=== PATIENT | male | born 1985 | race Caucasian/White ===

== ENCOUNTER 2016-10-07 16:29 | Emergency (ER) | payer SELFPAY ==
[2016-10-07] MEDS ORDERED: NORMAL SALINE 1000 ML 1,000 ML IV ONE (17:16)
[2016-10-07 17:29] LABS: ABSOLUTE BASOPHILS # (AUTO) 0.1 10^3/uL (0.0-0.2); ABSOLUTE EOSINOPHILS # (AUTO) 0.3 10^3/uL (0.0-0.6); ABSOLUTE LYMPHOCYTES (AUTO) 2.6 10^3/uL (0.5-4.7); ABSOLUTE NEUT (AUTO) 6.9 10^3/uL (1.7-8.2); BASOPHILS % (AUTO) 0.6 % (0-2); EOSINOPHILS % (AUTO) 2.4 % (0-6); HEMATOCRIT 45.5 % (37.9-51.0); HGB HCT DIFFERENCE 2.5; LYMPHOCYTES % (AUTO) 23.7 % (13-45); MEAN CORPUSCULAR HEMOGLOBIN 30.4 pg (27.0-33.4); MEAN CORPUSCULAR HGB CONC 35.1 g/dL (32.0-36.0); MEAN CORPUSCULAR VOLUME 87 fl (80-97); MONOCYTES % (AUTO) 9.2 % (3-13); RED BLOOD COUNT 5.25 10^6/uL (4.35-5.55); RED CELL DISTRIBUTION WIDTH 13.4 % (11.5-14.0); SEGMENTED NEUTROPHILS % (AUTO) 64.1 % (42-78); WHITE BLOOD COUNT 10.8 10^3/uL (4.0-10.5)
[2016-10-07] MEDS ORDERED: KETOROLAC TROMETHAMINE INJ/PF 30 MG/1 ML SDV IV ONE (17:31)
--- NOTE | 2016-10-07 17:38 | ER Document Report ---
ED Cardiac - General Chief Complaint: Palpitations Stated Complaint: FLU LIKE SYMPTOMS Information source: Patient TRAVEL OUTSIDE OF THE U.S. IN LAST 30 DAYS: No - HPI Patient complains to provider of: Chest pain, Palpitations Use of: Alcohol - Social, Amphetamines - Prescribed, Caffeine - Monster energy daily Quality of pain: Constant, Tightness Associated symptoms: Fatigue, Headache, Palpitations. denies: Abdominal pain, Anxiety, Back pain, Dizziness, Edema, Fever/chills, Heartburn, Hypotension, Jaw pain, Nausea/vomiting, Neck pain, Rash, Syncope, Weakness Notes: Patient arrives with complaints of palpitations and left-sided chest pressure for the last few days now. Patient has a history of SVT and V. tach and has had 2 ablations in the past. He also reports that he has had a heart catheter in the past. The patient is on Adderall for ADHD, he also reports that he takes Ativan when necessary for anxiety. States that he has not been taking his Adderall over the last few days and has not been drinking his monster energy drink for the last few days due to feeling palpitations. He denies any fevers. He denies any injury. He denies any nausea, vomiting, diarrhea. He denies any recent trips or surgeries, no leg pain or leg swelling, no history of DVT or PE, no history of CHF. - Related Data Allergies/Adverse Reactions: brompheniramine [From Tussi Pres-B] Allergy (Verified 10/07/16 16:42) dextromethorphan [From Tussi Pres-B] Allergy (Verified 10/07/16 16:42) guaifenesin [From Tussi Pres-B] Allergy (Verified 10/07/16 16:42) latex Allergy (Verified 10/07/16 16:42) phenylephrine [From Tussi Pres-B] Allergy (Verified 10/07/16 16:42) Past Medical History - Social History Smoking Status: Unknown if Ever Smoked Family History: Reviewed & Not Pertinent Patient has suicidal ideation: No Patient has homicidal ideation: No - Past Medical History Cardiac Medical History: Reports: Hx Hypertension Renal/ Medical History: Denies: Hx Peritoneal Dialysis Psychiatric Medical History: Reports: Hx Attention Deficit Hyperactivity Disorder, Hx Depression Past Surgical History: Reports: Hx Cardiac Catheterization, Hx Cardiac Surgery - ablasion Review of Systems - Review of Systems -: Yes All other systems reviewed and negative Physical Exam - Vital signs Vitals: Temp Pulse Resp BP Pulse Ox 98.3 F 83 20 159/94 H 100 10/07/16 16:37 10/07/16 16:37 10/07/16 16:37 10/07/16 16:37 10/07/16 16:37 - General General appearance: Appears well, Alert In distress: None - HEENT Head: Normocephalic, Atraumatic Eyes: Normal Conjunctiva: Normal Pupils: PERRL Ears: Normal Nasal: Normal Mouth/Lips: Normal Mucous membranes: Normal - Respiratory Respiratory status: No respiratory distress Breath sounds: Normal - Cardiovascular Rhythm: Regular Heart sounds: Normal auscultation Murmur: No Normal capillary refill: Yes - Abdominal Inspection: Normal Distension: No distension Bowel sounds: Normal Tenderness: Nontender Organomegaly: No organomegaly - Back Back: Normal, Nontender - Extremities General upper extremity: Normal inspection, Nontender, Normal color, Normal ROM , Normal temperature General lower extremity: Normal inspection, Nontender, Normal color, Normal ROM , Normal temperature, Normal weight bearing. No: Tender, Edema - Neurological Neuro grossly intact: Yes Cognition: Normal Orientation: AAOx4 Ovi Coma Scale Eye Opening: Spontaneous [place] Coma Scale Verbal: Oriented [place] Coma Scale Motor: Obeys Commands Ovi Coma Scale Total: 15 Speech: Normal Motor strength normal: LUE, RUE, LLE, RLE Sensory: Normal - Psychological Associated symptoms: Normal affect, Normal mood - Skin Skin Temperature: Warm Skin Moisture: Dry Skin Color: Normal Course - Re-evaluation Re-evalutation: 10/07/16 18:41 Patient's nontoxic appearing with stable vitals. He has a history of SVT and V. tach and has had 2 ablations in the past. He's been having palpitations for the last few days. His EKG is unremarkable. He is noted to have occasional PVCs on a child monitor. No other arrhythmias are identified. Blood work is all negative including electrolytes TSH and troponin. D-dimer is negative, the patient has no PE risk factors, and PE is very unlikely in this patient. This point the patient can be discharged home with instructions to follow up with his meter repairer at the next available appointment for possible Holter monitor. He is instructed to avoid any stimulants including his Adderall as well as energy drinks. He should follow up sooner if he develops worsening chest pain, difficulty breathing, syncope, or has any further concerns. The patient is noted to have elevated blood pressure during today's emergency department visit. The patient was informed of this finding. The patient was instructed that this may be related to pre-hypertension and requires further evaluation with a primary care provider. The patient has no hypertensive symptoms at this time. The patient's emergency department workup and current diagnosis were explained to the patient and or family. Follow-up instructions were provided. Medications if prescribed were discussed. Instructions for when to return to the emergency department including specific worrisome symptoms were discussed with the patient and/or family. - Vital Signs Vital signs: Temp Pulse Resp BP Pulse Ox 98.3 F 83 12 132/73 H 98 10/07/16 16:37 10/07/16 16:37 10/07/16 18:32 10/07/16 18:32 10/07/16 18:32 - Laboratory Result Diagrams: 10/07/16 17:20 10/07/16 17:20 Laboratory results interpreted by me: 10/07/16 10/07/16 17:20 17:20 WBC 10.8 H Glucose 163 H - EKG Interpretation by [facility] EKG shows normal: Sinus rhythm, Intervals, QRS Complexes Rate: Normal Additional EKG results interpreted by wv: 10/07/16 17:45 Inverted T-wave in lead 3 and aVF, no EKGs to compare this to. Discharge - Discharge Clinical Impression: Palpitations, PVCs (premature ventricular contractions) Condition: Stable Disposition: HOME, SELF-CARE Additional Instructions: Avoid stimulants including your Adderall as well as monster or other energy drinks. Follow-up with your meter repairer at the next available appointment. Follow up sooner or return for severe chest pain, significant difficulty breathing, passing out, or any further concerns. Your blood pressure was elevated during today's visit. Have this rechecked with your doctor.
[2016-10-07 17:51] LABS: ALANINE AMINOTRANSFERASE 67 U/L (21-72); ALBUMIN 4.4 g/dL (3.5-5.0); ALKALINE PHOSPHATASE 78 U/L (38-126); ANION GAP 13 (5-19); ASPARTATE AMINO TRANSFERASE 28 U/L (17-59); BILIRUBIN,DIRECT 0.2 mg/dL (0.0-0.4); BILIRUBIN,TOTAL 0.5 mg/dL (0.2-1.3); BLOOD UREA NITROGEN 15 mg/dL (7-20); CALCIUM 9.5 mg/dL (8.4-10.2); CARBON DIOXIDE 26 mmol/L (22-30); CHLORIDE 101 mmol/L (98-107); CREATINE KINASE 166 U/L (55-170); CREATININE RESULT 0.97 mg/dL (0.52-1.25); GLUCOSE 163 mg/dL (75-110); MAGNESIUM 1.7 mg/dL (1.6-2.3); POTASSIUM 4.3 mmol/L (3.6-5.0); SODIUM 139.7 mmol/L (137-145); TOTAL PROTEIN 7.2 g/dL (6.3-8.2)
[2016-10-07 19:13] VITALS: BP 118/71
--- NOTE | 2016-10-07 22:08 | EKG REPORT ---
SEVERITY:- ABNORMAL ECG - SINUS RHYTHM NONSPECIFIC T ABNORMALITIES, INFERIOR LEADS : Confirmed by: Yakelin Cabrera MD 07-Oct-2016 22:08:14
== END 2016-10-07 19:13 | disposition home or self-care (01) ==
LOC: ER 16:29
DX: R00.2 Palpitations (principal); I49.3 Ventricular premature depolarization; R07.9 Chest pain, unspecified; R51 Headache; R53.83 Other fatigue; I10 Essential (primary) hypertension; Z91.040 Latex allergy status
CPT/HCPCS: 93005; 99285; 96361; 96374; 36415; 82550; 83735; 84443; 85025; 80053; 84484; 85379; 71020; 93010; J1885; J7030

== ENCOUNTER 2016-11-23 08:52 | Emergency (ER) | payer SELFPAY ==
[2016-11-23 08:58] VITALS: BP 138/87
[2016-11-23] MEDS ORDERED: PENICILLIN V POTASSIUM 500 MG TABLET PO ONE (09:24)
[2016-11-23] MEDS ORDERED: IBUPROFEN 600 MG TABLET PO ONE (09:24)
--- NOTE | 2016-11-23 09:30 | ER Document Report ---
ED Oral Problem - General Chief Complaint: Toothache Stated Complaint: TOOTH PAIN Time Seen by Provider: 11/23/16 09:17 Mode of Arrival: Ambulatory Information source: Patient Notes: 12-year-old male presents to ED for left upper back tooth #18 pain since last night. It has most of the tooth chipped and broken more redness around the tooth TRAVEL OUTSIDE OF THE [place] IN LAST 30 DAYS: No - HPI Patient complains to provider of: Toothache Onset: Yesterday Onset: Gradual Quality of pain: Pressure, Sharp, Throbbing Severity: Moderate Associated symptoms: Toothache Worsened by: Cold Similar symptoms previously: Yes Recently seen / treated by doctor/dentist: No - Related Data Allergies/Adverse Reactions: brompheniramine [From Tussi Pres-B] Allergy (Verified 11/23/16 08:53) dextromethorphan [From Tussi Pres-B] Allergy (Verified 11/23/16 08:53) guaifenesin [From Tussi Pres-B] Allergy (Verified 11/23/16 08:53) latex Allergy (Verified 11/23/16 08:53) phenylephrine [From Tussi Pres-B] Allergy (Verified 11/23/16 08:53) Past Medical History - General Information source: Patient - Social History Smoking Status: Current Every Day Smoker Cigarette use (# per day): Yes - Half a pack a day Chew tobacco use (# tins/day): No Smoking Education Provided: Yes - Less than 2 minutes Frequency of alcohol use: None Drug Abuse: None 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 Lives with: Spouse/Significant other Family History: Hypertension, Malignancy Patient has suicidal ideation: No Patient has homicidal ideation: No - Past Medical History Cardiac Medical History: Reports: Hx Hypertension, Other - SVT Pulmonary Medical History: Reports: None EENT Medical History: Reports: None Neurological Medical History: Reports: None Endocrine Medical History: Reports: None Renal/ Medical History: Reports: None Malignancy Medical History: Reports None GI Medical History: Reports: None Musculoskeltal Medical History: Reports Hx Musculoskeletal Trauma Skin Medical History: Reports None Psychiatric Medical History: Reports: Hx Attention Deficit Hyperactivity Disorder, Hx Depression Traumatic Medical History: Reports: Hx Fractures - Ankle Infectious Medical History: Reports: None Past Surgical History: Reports: Hx Cardiac Catheterization, Hx Cardiac Surgery - ablasion - Immunizations Immunizations up to date: Yes Hx Diphtheria, Pertussis, Tetanus Vaccination: Yes Review of Systems - Review of Systems Constitutional: No symptoms reported EENT: Dental problem Cardiovascular: No symptoms reported Respiratory: No symptoms reported Gastrointestinal: No symptoms reported Genitourinary: No symptoms reported Male Genitourinary: No symptoms reported Musculoskeletal: No symptoms reported Skin: No symptoms reported Hematologic/Lymphatic: No symptoms reported Neurological/Psychological: No symptoms reported Physical Exam - Vital signs Vitals: Temp Pulse Resp BP Pulse Ox 97.4 F 96 20 138/87 H 98 11/23/16 08:57 11/23/16 08:57 11/23/16 08:57 11/23/16 08:57 11/23/16 08:57 Interpretation: Normal - General General appearance: Appears well, Alert - HEENT Head: Normocephalic, Atraumatic Eyes: Normal Pupils: PERRL Ears: Normal External canal: Normal Tympanic membrane: Normal Sinus: Normal Nasal: Normal Mouth/Lips: Caries Mucous membranes: Normal Teeth diagram: 1 - Part of the tooth broken off and missing gum swelling around the tooth Pharynx: Normal Neck: Normal - Respiratory Respiratory status: No respiratory distress Chest status: Nontender Breath sounds: Normal Chest palpation: Normal - Cardiovascular Rhythm: Regular Heart sounds: Normal auscultation Murmur: No - Abdominal Inspection: Normal Distension: No distension Bowel sounds: Normal Tenderness: Nontender Organomegaly: No organomegaly - Back Back: Normal, Nontender - Extremities General upper extremity: Normal inspection, Nontender, Normal color, Normal ROM , Normal temperature General lower extremity: Normal inspection, Nontender, Normal color, Normal ROM , Normal temperature, Normal weight bearing. No: Rox's sign - Neurological Neuro grossly intact: Yes Cognition: Normal Orientation: AAOx4 [place] Coma Scale Eye Opening: Spontaneous [place] Coma Scale Verbal: Oriented [place] Coma Scale Motor: Obeys Commands Ovi Coma Scale Total: 15 Speech: Normal Motor strength normal: LUE, RUE, LLE, RLE Sensory: Normal - Psychological Associated symptoms: Normal affect, Normal mood - Skin Skin Temperature: Warm Skin Moisture: Dry Skin Color: Normal Course - Vital Signs Vital signs: Temp Pulse Resp BP Pulse Ox 97.4 F 96 20 138/87 H 98 11/23/16 08:57 11/23/16 08:57 11/23/16 08:57 11/23/16 08:57 11/23/16 08:57 Discharge - Discharge Clinical Impression: Pain due to dental caries Condition: Stable Disposition: HOME, SELF-CARE Instructions: Dentist Additional Instructions: TOOTHACHE: Your pain is due to dental decay. The tooth must be repaired in order for you to feel better. You will, therefore, be referred to a dentist. We do not have dentists on the staff at [facility]. Severe swelling or drainage around a tooth usually means a dental abscess. This also requires evaluation and treatment by the dentist, but antibiotics may be prescribed while awaiting dental treatment. You should be rechecked immediately if you develop major swelling of the face, increasing pain, a lump in the jaw or gums, headache, difficulty swallowing, or fever. ORAL NARCOTIC MEDICATION: You have been given a prescription for pain control. This medication is a narcotic. It's best taken with food, as nausea can result if taken on an empty stomach. Don't operate machinery or drive within six hours of taking this medication. Do not combine this medicine with alcohol, or with any medication which can cause sedation (such as cold tablets or sleeping pills) unless you get permission from the physician. Narcotics tend to cause constipation. If possible, drink plenty of fluids and eat a diet high in fiber and fruits. Please be aware that prescription narcotics also have the potential for abuse. People become addicted to these medications because of the general sense of wellbeing that they induce. This feeling along with a significant reduction in tension, anxiety, and aggression provides a stimulating seductive quality to these drugs. Once your pain is under control, we encourage you to discard your unused narcotics. PENICILLIN V K: You have been given a prescription for Penicillin VK. Your physician has determined that this is the best antibiotic for your condition. Pen VK can be taken with meals, however more of the antibiotic gets into the bloodstream if it's taken on an empty stomach. Penicillin usually has no side effects. However, allergy to penicillins is common. If you have had an allergic reaction to any drug of the penicillin family, you should never take any other penicillin. Notify your doctor at once if you develop hives, itching, swelling, faintness, or shortness of breath. FOLLOW-UP CARE: You have been referred for follow-up care to the dentists listed below. Call the dentists office for an appointment as you were instructed or within the next two days. If you experience worsening or a significant change in your symptoms, notify the physician immediately or return to the Emergency Department at any time for re-evaluation. [facility] [address] [place], [place] Wednesday mornings, by appointment [facility] [address] [place] [address] [facility] [address] [facility] [address] [facility] [facility] [address] [email or web address] [address] [place] [address] Wednesday- 8:00am to 5:00 pm Will see patients from other [facility]. Charges based on income and family size and accepts Medicare, Medicaid, and Insurances Will pull molars [facility] [address] Hours of Operation 8:00 am - 4:30 pm weekdays The following dental offices accept Medicaid: [facility] Dr. Pedroza Dr. Ignacio Dr. Perez Dr. Griffiths Amor [place] Luts[place], and [facility] oral surgery Dr. Ortiz ([place]) Dr. Corrales ([place]) [facility] Drs. Hudson and Kuldip ([place]) Dr. Mcguire ([place]) [facility] Dr. Cooley ([place]) Drs. De La Cruz and ([place]) Medicaid Care Line Prescriptions: Hydrocodone/Acetaminophen [[place] 5-325 mg Tablet] 1 tab PO Q6HP PRN #14 tablet PRN Reason: Penicillin V Potassium [Penicillin Vk 500 mg Tablet] 500 mg PO BID #20 tablet Forms: Smoking Cessation Education, Return to Work
== END 2016-11-23 09:40 | disposition home or self-care (01) ==
LOC: ER 08:52
DX: K02.9 Dental caries, unspecified (principal); K08.89 Other specified disorders of teeth and supporting structures; I10 Essential (primary) hypertension; Z88.8 Allergy status to other drugs, medicaments and biological substances; Z91.040 Latex allergy status; F17.210 Nicotine dependence, cigarettes, uncomplicated; Z71.6 Tobacco abuse counseling
CPT/HCPCS: 99282

== ENCOUNTER 2017-01-13 11:05 | Inpatient (IN) | payer SELFPAY ==
--- NOTE | 2017-01-13 12:07 | ER Document Report ---
ED GI/ - General Chief Complaint: Abdominal Pain Stated Complaint: ABDOMINAL PAIN Time Seen by Provider: 01/13/17 12:07 Mode of Arrival: Ambulatory Information source: Patient Notes: Patient is a 31-year-old male who presents to the ER today for vomiting bright red blood with blood clots 3 days. Patient has a history of a perforated gastric ulcer 2 years ago that started the same way. Patient has epigastric abdominal pain along with this for the past 3 days. He denies any diarrhea or blood in his stool. He denies any fevers or chills. TRAVEL OUTSIDE OF THE [place] IN LAST 30 DAYS: No - Related Data Allergies/Adverse Reactions: brompheniramine [From Tussi Pres-B] Allergy (Verified 01/13/17 11:14) dextromethorphan [From Tussi Pres-B] Allergy (Verified 01/13/17 11:14) guaifenesin [From Tussi Pres-B] Allergy (Verified 01/13/17 11:14) latex Allergy (Verified 01/13/17 11:14) phenylephrine [From Tussi Pres-B] Allergy (Verified 01/13/17 11:14) Past Medical History - General Information source: Patient - Social History Smoking Status: Unknown if Ever Smoked Family History: Hypertension, Malignancy - Past Medical History Cardiac Medical History: Reports: Hx Hypertension Renal/ Medical History: Denies: Hx Peritoneal Dialysis Musculoskeltal Medical History: Reports Hx Musculoskeletal Trauma Psychiatric Medical History: Reports: Hx Attention Deficit Hyperactivity Disorder, Hx Depression Traumatic Medical History: Reports: Hx Fractures - Ankle Past Surgical History: Reports: Hx Cardiac Catheterization, Hx Cardiac Surgery - ablasion - Immunizations Immunizations up to date: Yes Hx Diphtheria, Pertussis, Tetanus Vaccination: Yes Review of Systems - Review of Systems Constitutional: No symptoms reported EENT: No symptoms reported Cardiovascular: No symptoms reported Respiratory: No symptoms reported Gastrointestinal: See HPI Genitourinary: No symptoms reported Male Genitourinary: No symptoms reported Musculoskeletal: No symptoms reported Skin: No symptoms reported Hematologic/Lymphatic: No symptoms reported Neurological/Psychological: No symptoms reported Physical Exam - Vital signs Vitals: Temp Pulse Resp BP Pulse Ox 98.2 F 74 20 140/76 H 99 01/13/17 11:14 01/13/17 11:14 01/13/17 11:14 01/13/17 11:14 01/13/17 11:14 - Notes Notes: PHYSICAL EXAMINATION: GENERAL: uncomfortable, but in no acute distress. HEAD: Atraumatic, normocephalic. EYES: Pupils equal round and reactive to light, extraocular movements intact, sclera anicteric, conjunctiva are normal. ENT: ear canals without erythema or foreign body, TMs p[place] christie with good bony landmarks, nares patent, oropharynx clear without exudates. Moist mucous membranes. NECK: Normal range of motion, supple without lymphadenopathy LUNGS: CTAB and equal. No wheezes rales or rhonchi. HEART: Regular rate and rhythm without murmurs ABDOMEN: Soft, moderate epigastric tenderness. No guarding, no rebound BACK: no vertebral tenderness, normal ROM EXTREMITIES: Normal range of motion, no pitting edema. No cyanosis. NEUROLOGICAL: Cranial nerves grossly intact. Normal sensory/motor exams. PSYCH: Normal mood, normal affect. SKIN: Warm, Dry, normal turgor, no rashes or lesions noted Course - Re-evaluation Re-evalutation: 01/13/17 15:59 pt's vitals are all stable, not tachycardic, hgb is 16. Dr. Mortensen agrees pt needs admission for scope. Dr. Talbert, hospitalist agrees to admit patient at this time. Pt on clear liquid diet for tonight. - Vital Signs Vital signs: Temp Pulse Resp BP Pulse Ox 98.2 F 74 20 140/76 H 99 01/13/17 11:14 01/13/17 11:14 01/13/17 11:14 01/13/17 11:14 01/13/17 11:14 - Laboratory Result Diagrams: 01/13/17 12:13 01/13/17 12:13 Discharge - Discharge Clinical Impression: Upper GI bleed, Epigastric pain Condition: Stable Disposition: ADMITTED INPATIENT Admitting Provider: Hospitalist Unit Admitted: Telemetry Referrals: MARITZA WEATHERS PA-C [Primary Care Provider] - Follow up as needed
[2017-01-13] MEDS ORDERED: NORMAL SALINE 1000 ML 1,000 ML IV ONE (12:09)
[2017-01-13] MEDS ORDERED: PANTOPRAZOLE SODIUM 40 MG VIAL IV ONE (12:09)
[2017-01-13] MEDS ORDERED: METOCLOPRAMIDE HCL ORAL SOLN 10 MG/10 ML UDCUP PO ONE (12:16)
[2017-01-13] MEDS ORDERED: MAG HYDROX/AL HYDROX/SIMETH SUSP 30 ML UDCUP PO ONE (12:16)
[2017-01-13] MEDS ORDERED: LIDOCAINE 2% VISCOUS SOLN 20 ML UDCUP PO ONE (12:16)
[2017-01-13] MEDS ORDERED: ONDANSETRON HCL INJ/PF 4 MG/2 ML SDV IV ONE ×2 (12:16→16:03)
[2017-01-13 12:31] LABS: ABSOLUTE EOSINOPHILS # (AUTO) 0.2 10^3/uL (0.0-0.6); ABSOLUTE LYMPHOCYTES (AUTO) 2.2 10^3/uL (0.5-4.7); ABSOLUTE MONOCYTES (AUTO) 0.8 10^3/uL (0.1-1.4); ABSOLUTE NEUT (AUTO) 4.2 10^3/uL (1.7-8.2); BASOPHILS % (AUTO) 0.6 % (0-2); EOSINOPHILS % (AUTO) 2.4 % (0-6); HEMATOCRIT 47.2 % (37.9-51.0); HEMOGLOBIN 16.2 g/dL (13.5-17.0); HGB HCT DIFFERENCE 1.4; LYMPHOCYTES % (AUTO) 29.5 % (13-45); MEAN CORPUSCULAR HEMOGLOBIN 29.8 pg (27.0-33.4); MEAN CORPUSCULAR HGB CONC 34.3 g/dL (32.0-36.0); MEAN CORPUSCULAR VOLUME 87 fl (80-97); MONOCYTES % (AUTO) 10.9 % (3-13); RED BLOOD COUNT 5.43 10^6/uL (4.35-5.55); RED CELL DISTRIBUTION WIDTH 13.5 % (11.5-14.0); SEGMENTED NEUTROPHILS % (AUTO) 56.6 % (42-78); WHITE BLOOD COUNT 7.5 10^3/uL (4.0-10.5)
[2017-01-13 12:34] LABS: PROTHROMBIN TIME 13.8 SEC (11.4-15.4)
[2017-01-13 12:35] LABS: PARTIAL THROMBOPLASTIN TIME 30.6 SEC (23.5-35.8)
[2017-01-13 12:50] LABS: ALANINE AMINOTRANSFERASE 59 U/L (21-72); ALBUMIN 4.8 g/dL (3.5-5.0); ALKALINE PHOSPHATASE 66 U/L (38-126); ANION GAP 12 (5-19); ASPARTATE AMINO TRANSFERASE 30 U/L (17-59); BILIRUBIN,DIRECT 0.3 mg/dL (0.0-0.4); BILIRUBIN,TOTAL 0.8 mg/dL (0.2-1.3); BLOOD UREA NITROGEN 14 mg/dL (7-20); CALCIUM 9.9 mg/dL (8.4-10.2); CARBON DIOXIDE 23 mmol/L (22-30); CHLORIDE 104 mmol/L (98-107); CREATININE RESULT 1.01 mg/dL (0.52-1.25); GLUCOSE 103 mg/dL (75-110); POTASSIUM 4.6 mmol/L (3.6-5.0); SODIUM 138.6 mmol/L (137-145); TOTAL PROTEIN 7.8 g/dL (6.3-8.2)
[2017-01-13] MEDS ORDERED: MORPHINE SULFATE 10 MG/ML INJ IV ONE ×4 (13:13→18:47)
--- NOTE | 2017-01-13 16:00 | RADIOLOGY REPORT (SQ) ---
EXAM DESCRIPTION: ACUTE ABDOMEN SERIES COMPLETED DATE/TIME: 01/13/2017 2:30 pm REASON FOR STUDY: gastric ulcer COMPARISON: None. NUMBER OF VIEWS: Three views. TECHNIQUE: Frontal chest, supine abdomen and upright/decubitus abdomen radiographic images acquired. LIMITATIONS: None. FINDINGS: CHEST: Lungs clear of infiltrates. FREE AIR: None. No abnormal gas collections. BOWEL GAS PATTERN: Nonobstructive pattern. No dilated loops or air fluid levels. CALCIFICATIONS: No suspicious calcifications. HARDWARE: None in the abdomen. SOFT TISSUES: No gross mass or suggestion of organomegaly. BONES: No acute fracture. No worrisome bone lesions. OTHER: No other significant finding. IMPRESSION: NO RADIOGRAPHIC EVIDENCE FOR ACUTE ABDOMINAL DISEASE. TECHNICAL DOCUMENTATION: JOB ID: [id number] [employer]- All Rights Reserved
[2017-01-13] MEDS ORDERED: ACETAMINOPHEN 325 MG TABLET PO PRN (16:21)
[2017-01-13] MEDS ORDERED: NORMAL SALINE 1000 ML 1,000 ML IV PRN (16:21)
[2017-01-13] MEDS ORDERED: ONDANSETRON HCL INJ/PF 4 MG/2 ML SDV IV PRN (16:26)
[2017-01-13] MEDS ORDERED: MORPHINE SULFATE 10 MG/ML INJ IV PRN (16:29)
[2017-01-13 16:37] LABS: APPEARANCE,URINE CLEAR; BILIRUBIN,URINE NEGATIVE (NEGATIVE); GLUCOSE, URINE NEGATIVE (NEGATIVE); KETONES,URINE NEGATIVE (NEGATIVE); LEUKOCYTE ESTERASE,URINE NEGATIVE (NEGATIVE); NITRITE,URINE NEGATIVE (NEGATIVE); PROTEIN,URINE NEGATIVE (NEGATIVE); URINE SPECIFIC GRAVITY 1.016; UROBILINOGEN,URINE NEGATIVE mg/dL (<2.0)
--- NOTE | 2017-01-13 16:56 | PDOC H&P ---
History of Present Illness Admission Date/PCP: 01/13/17 16:21 MARITZA WEATHERS PA-C Patient complains of: vomiting blood History of Present Illness: SAMEER SALGADO is a 31 year old male presents to the ED from home with 3d hx of vomiting blood and prior hx of PUD and UGIB requiring endoscopy and cautery without etiology identified. This started suddenly after working out at the gym with vomiting of blood and epigastric pain which continued until he couldn' t take the pain anymore. He denies NSAID, steroid (anabolic or otherwise) use, ETOH and has no recollection of H. Pylori in the past. He doesn't routinely take acid suppressors but admits a love for hot, spicy food in spite of his hx. He denies family hx of GI disease, gastrin tumors, PUD, malignancy, etc. he denies weight loss, night sweats, swollen glands. eval in ED demonstrated active hematemesis, he remains hemodynamically stable and AXR shows no evidence for free air or perforation. we were asked to admit for further management. dr story, GI consulted from the ED. Past Medical History Cardiac Medical History: Reports: Hypertension Endocrine Medical History: Denies: Diabetes Mellitus Type 1 GI Medical History: Reports: Peptic Ulcer Disease Psychiatric Medical History: Reports: Attention Deficit Hyperactivity Disorder, Depression Past Surgical History Past Surgical History: Reports: Cardiac Catheterization, Cholecystectomy, Other - cardiac ablation for WPW Social History Information Source: Patient Lives with: Spouse/Significant other Smoking Status: Never Smoker Frequency of Alcohol Use: None Hx Recreational Drug Use: No Hx Prescription Drug Abuse: No - Advance Directive Resuscitation Status: Full Code Family History Family History: Hypertension, Malignancy - no GI malignancy Parental Family History Reviewed: Yes Children Family History Reviewed: Yes Sibling(s) Family History Reviewed.: Yes Medication/Allergy Home Medications: Hydrocodone/Acetaminophen [Collyer 5-325 mg Tablet] 1 tab PO Q6HP PRN #14 tablet 11/23/16 Penicillin V Potassium [Penicillin Vk 250 mg Tablet] 250 mg PO Q6 #40 tablet Allergies/Adverse Reactions: brompheniramine [From Tussi Pres-B] Allergy (Verified 01/13/17 11:14) dextromethorphan [From Tussi Pres-B] Allergy (Verified 01/13/17 11:14) guaifenesin [From Tussi Pres-B] Allergy (Verified 01/13/17 11:14) latex Allergy (Verified 01/13/17 11:14) phenylephrine [From ssi Pres-B] Allergy (Verified 01/13/17 11:14) Review of Systems All systems: reviewed and no additional remarkable complaints except as stated - all systems reviewed, see HPI, remaining systems negative Physical Exam Vital Signs: Temp Pulse Resp BP Pulse Ox 98.2 F 74 20 134/72 H 97 01/13/17 11:14 01/13/17 11:14 01/13/17 11:14 01/13/17 15:02 01/13/17 15:02 General appearance: PRESENT: mild distress - epigastric pain, well-developed, well-nourished Head exam: PRESENT: atraumatic, normocephalic Eye exam: PRESENT: EOMI. ABSENT: conjunctival injection, scleral icterus Mouth exam: PRESENT: moist, neck supple Neck exam: PRESENT: full ROM. ABSENT: tracheal deviation Respiratory exam: PRESENT: clear to auscultation sofia. ABSENT: accessory muscle use Cardiovascular exam: PRESENT: RRR. ABSENT: systolic murmur Pulses: PRESENT: normal radial pulses, normal dorsalis pedis pul GI/Abdominal exam: PRESENT: normal bowel sounds, soft, tenderness - pain epigastrium. ABSENT: guarding, organolmegaly Extremities exam: ABSENT: calf tenderness, pedal edema Musculoskeletal exam: PRESENT: ambulatory, full ROM Neurological exam: PRESENT: alert, awake, oriented to person, oriented to place , oriented to time, oriented to situation Psychiatric exam: PRESENT: appropriate affect, normal mood Skin exam: PRESENT: dry, warm Results Laboratory Results: 01/13/17 12:13 01/13/17 12:13 MCV 87 fl (80-97) 01/13/17 12:13 MCH 29.8 pg (27.0-33.4) 01/13/17 12:13 MCHC 34.3 g/dL (32.0-36.0) 01/13/17 12:13 RDW 13.5 % (11.5-14.0) 01/13/17 12:13 Seg Neutrophils % 56.6 % (42-78) 01/13/17 12:13 Lymphocytes % 29.5 % (13-45) 01/13/17 12:13 Monocytes % 10.9 % (3-13) 01/13/17 12:13 Eosinophils % 2.4 % (0-6) 01/13/17 12:13 Basophils % 0.6 % (0-2) 01/13/17 12:13 Absolute Neutrophils 4.2 10^3/uL (1.7-8.2) 01/13/17 12:13 Absolute Lymphocytes 2.2 10^3/uL (0.5-4.7) 01/13/17 12:13 Absolute Monocytes 0.8 10^3/uL (0.1-1.4) 01/13/17 12:13 Absolute Eosinophils 0.2 10^3/uL (0.0-0.6) 01/13/17 12:13 Absolute Basophils 0.0 10^3/uL (0.0-0.2) 01/13/17 12:13 Chloride 104 mmol/L (98-107) 01/13/17 12:13 Carbon Dioxide 23 mmol/L (22-30) 01/13/17 12:13 Anion Gap 12 (5-19) 01/13/17 12:13 Est GFR ( Amer) > 60 (>60) 01/13/17 12:13 Est GFR (Non-Af Amer) > 60 (>60) 01/13/17 12:13 Glucose 103 mg/dL (75-110) 01/13/17 12:13 Calcium 9.9 mg/dL (8.4-10.2) 01/13/17 12:13 Total Bilirubin 0.8 mg/dL (0.2-1.3) 01/13/17 12:13 AST 30 U/L (17-59) 01/13/17 12:13 ALT 59 U/L (21-72) 01/13/17 12:13 Alkaline Phosphatase 66 U/L (38-126) 01/13/17 12:13 Total Protein 7.8 g/dL (6.3-8.2) 01/13/17 12:13 Albumin 4.8 g/dL (3.5-5.0) 01/13/17 12:13 Lipase 94.4 U/L (23-300) 01/13/17 12:13 Urine Color YELLOW 01/13/17 15:17 Urine Appearance CLEAR 01/13/17 15:17 Urine pH 6.0 (5.0-9.0) 01/13/17 15:17 Ur Specific Left Hand 1.016 01/13/17 15:17 Urine Protein NEGATIVE mg/dL (NEGATIVE) 01/13/17 15:17 Urine Glucose (UA) NEGATIVE mg/dL (NEGATIVE) 01/13/17 15:17 Urine Ketones NEGATIVE mg/dL (NEGATIVE) 01/13/17 15:17 Urine Blood NEGATIVE (NEGATIVE) 01/13/17 15:17 Urine Nitrite NEGATIVE (NEGATIVE) 01/13/17 15:17 Ur Leukocyte Esterase NEGATIVE (NEGATIVE) 01/13/17 15:17 Urine WBC (Auto) 1 /HPF 01/13/17 15:17 Urine RBC (Auto) 0 /HPF 01/13/17 15:17 Impressions: Acute Abdomen Series 01/13/17 13:30 IMPRESSION: NO RADIOGRAPHIC EVIDENCE FOR ACUTE ABDOMINAL DISEASE. Status: Image reviewed by me - agree with rads Assessment & Plan - Diagnosis (1) Upper GI bleed Is this a current diagnosis for this admission?: YesPlan: new; admit to monitored bed for PPI bid, clear liquid diet, trend H/H and GI consult intending to take to endo suite in am (2) PUD (peptic ulcer disease) Is this a current diagnosis for this admission?: YesPlan: PPI bid and await gastric Bxs from endoscopy (3) History of Fwpqh-Ggliwykmk-Aimni (WPW) syndrome Is this a current diagnosis for this admission?: YesPlan: s/p ablation - Time Time Spent: 50 to 70 Minutes Medications reviewed and adjusted accordingly: Yes Anticipated discharge: Home Within: within 48 hours - Inpatient Certification Based on my medical assessment, after consideration of the patient's comorbidities, presenting symptoms, or acuity I expect that the services needed warrant INPATIENT care.: Yes I certify that my determination is in accordance with my understanding of Medicare's requirements for reasonable and necessary INPATIENT services [42 CFR 412.3e].: Yes Medical Necessity: Need For IV Fluids, Need For Continuous Telemetry Monitoring , Need for Pain Control
--- NOTE | 2017-01-13 17:52 | PDOC CONSULTATION ---
Consultation Consult Date: 01/13/17 Attending physician:: AZEEM RICHARDS Consult reason:: abdominal pain, hematemesis. history of PUD, perforated in the past History of Present Illness Admission Date/PCP: 01/13/17 16:21 MARITZA WEATHERS PA-C History of Present Illness: I was asked to see this patient from the ED he is being admitted by the Hospitalist service patient has a previous history of a perforated peptic ulcer s/p cholecystectomy patient does also have a history of WPW that has been ablated presents with abdominal pain with nausea and vomiting patient has had some hematemesis Hgb is stable patient does admit to some melena as well, but that has resolved patient is actually hungry and want to eat appears hemodynamically stable has a history of previous perforated ulcer , abdominal series here is negative patient states does have some early satiety as well denies any NSAID use Past Medical History Cardiac Medical History: Reports: Hypertension Endocrine Medical History: Denies: Diabetes Mellitus Type 1 GI Medical History: Reports: Peptic Ulcer Disease Psychiatric Medical History: Reports: Attention Deficit Hyperactivity Disorder, Depression Past Surgical History Past Surgical History: Reports: Cardiac Catheterization, Cholecystectomy, Other - cardiac ablation for WPW Social History Lives with: Spouse/Significant other Smoking Status: Never Smoker Frequency of Alcohol Use: None Hx Recreational Drug Use: No Hx Prescription Drug Abuse: No - Advance Directive Resuscitation Status: Full Code Family History Family History: Hypertension, Malignancy - no GI malignancy Parental Family History Reviewed: Yes Children Family History Reviewed: Unknown Sibling(s) Family History Reviewed.: Unknown Medication/Allergy Allergies/Adverse Reactions: brompheniramine [From Tussi Pres-B] Allergy (Verified 01/13/17 11:14) dextromethorphan [From Tussi Pres-B] Allergy (Verified 01/13/17 11:14) guaifenesin [From Tussi Pres-B] Allergy (Verified 01/13/17 11:14) latex Allergy (Verified 01/13/17 11:14) phenylephrine [From Tussi Pres-B] Allergy (Verified 01/13/17 11:14) Review of Systems Constitutional: ABSENT: fever(s), headache(s), night sweats, weakness Eyes: ABSENT: visual disturbances Ears: ABSENT: hearing changes Nose, Mouth, and Throat: ABSENT: mouth pain, sore throat Cardiovascular: ABSENT: orthropnea, palpitations Respiratory: ABSENT: dyspnea, hemoptysis Gastrointestinal: PRESENT: hematemesis, melena. ABSENT: diarrhea, dysphagia Genitourinary: ABSENT: dysuria, hematuria Musculoskeletal: ABSENT: deformity, joint swelling Integumentary: ABSENT: pruritus Neurological: ABSENT: syncope, tingling, tremor(s), vertigo Endocrine: ABSENT: polydipsia, polyphagia, polyuria Hematologic/Lymphatic: ABSENT: easy bruising Physical Exam Vital Signs: Temp Pulse Resp BP Pulse Ox 98.2 F 74 18 130/90 H 96 01/13/17 11:14 01/13/17 11:14 01/13/17 17:01 01/13/17 17:00 01/13/17 17:01 General appearance: PRESENT: no acute distress, well-developed, well-nourished Head exam: PRESENT: atraumatic, normocephalic Eye exam: PRESENT: EOMI, PERRLA. ABSENT: nystagmus, periorbital swelling, scleral icterus Mouth exam: PRESENT: moist, neck supple Throat exam: ABSENT: tonsillar exudate, tonsillogmegaly Neck exam: ABSENT: meningismus, tenderness, thyromegaly Respiratory exam: PRESENT: symmetrical, unlabored. ABSENT: rales, tachypnea, wheezes Cardiovascular exam: PRESENT: RRR, +S1, +S2 Pulses: PRESENT: normal carotid pulses Extremities exam: ABSENT: joint swelling Musculoskeletal exam: PRESENT: full ROM Neurological exam: PRESENT: oriented to time, oriented to situation, reflexes normal, CN II-XII grossly intact Skin exam: PRESENT: normal color. ABSENT: mottled, pallor, petechiae, urticaria , vesicles Results Impressions: Acute Abdomen Series 01/13/17 13:30 IMPRESSION: NO RADIOGRAPHIC EVIDENCE FOR ACUTE ABDOMINAL DISEASE. Assessment & Plan - Diagnosis (1) Epigastric pain Plan: likely has peptic ulcer disease no perforation noted admit PPI drip ? can start on clear will need to be NPO overnight he will need EGD would benefit from Propofol sedation Risks, benefits and alternatives are explained to the patient in detail further recommendations to follow (2) Upper GI bleed Is this a current diagnosis for this admission?: YesPlan: could be due to ulcer vs possible Alaina ruiz tear EGD should hopefully provide further clarification patient is willing to proceed - Time Time Spent: 50 to 70 Minutes
[2017-01-13] MEDS: MORPHINE SULFATE 10 MG/ML INJ IV PRN (22:50)
[2017-01-13] MEDS: PANTOPRAZOLE SODIUM 40 MG VIAL IV SCH (22:50)
[2017-01-13 23:46] LABS: HEMATOCRIT 40.7 % (37.9-51.0); MEAN CORPUSCULAR HEMOGLOBIN 30.1 pg (27.0-33.4); MEAN CORPUSCULAR HGB CONC 34.2 g/dL (32.0-36.0); MEAN CORPUSCULAR VOLUME 88 fl (80-97); RED BLOOD COUNT 4.63 10^6/uL (4.35-5.55); RED CELL DISTRIBUTION WIDTH 13.3 % (11.5-14.0); WHITE BLOOD COUNT 7.8 10^3/uL (4.0-10.5)
[2017-01-13 23:50] LABS: HEMOGLOBIN 13.9 g/dL (13.5-17.0)
[2017-01-14] MEDS: MORPHINE SULFATE 10 MG/ML INJ IV PRN ×2 (03:12→07:31)
[2017-01-14 05:44] LABS: HEMATOCRIT 39.6 % (37.9-51.0); HEMOGLOBIN 13.6 g/dL (13.5-17.0); HGB HCT DIFFERENCE 1.2; MEAN CORPUSCULAR HEMOGLOBIN 29.7 pg (27.0-33.4); MEAN CORPUSCULAR HGB CONC 34.4 g/dL (32.0-36.0); MEAN CORPUSCULAR VOLUME 87 fl (80-97); RED BLOOD COUNT 4.58 10^6/uL (4.35-5.55); RED CELL DISTRIBUTION WIDTH 13.2 % (11.5-14.0); WHITE BLOOD COUNT 6.9 10^3/uL (4.0-10.5)
[2017-01-14] MEDS: PANTOPRAZOLE SODIUM 40 MG VIAL IV SCH (09:16)
[2017-01-14] MEDS ORDERED: PROPOFOL INJ 200 MG/20 ML VIAL IV ONE (10:49)
[2017-01-14] MEDS ORDERED: MIDAZOLAM 2 MG/2 ML INJ ONE (12:49)
[2017-01-14] MEDS ORDERED: MORPHINE SULFATE 10 MG/ML INJ IV PRN (14:13)
[2017-01-14] MEDS ORDERED: ONDANSETRON HCL INJ/PF 4 MG/2 ML SDV IV PRN (14:14)
--- NOTE | 2017-01-14 14:42 | Operative Report ---
Operative Report DATE OF SURGERY: 01/14/17 Operative Report: The risks benefits and alternatives of the procedure explained to the patient in detail and informed consent is obtained. A GIF Olympus video scope was inserted into the patient's mouth and hypopharynx, the esophagus is identified intubated and insufflated ,the scope was then advanced through the esophagus stomach and duodenum,retroflexion maneuver is done, the esophagus stomach and first and second portions of the duodenum examined PREOPERATIVE DIAGNOSIS: Hematemesis POSTOPERATIVE DIAGNOSIS: Mild gastritis,. Duodenitis. Previous old Alaina- Muro tear healing OPERATION: EGD with biopsy SURGEON: AZEEM RICHARDS ANESTHESIA: LMAC TISSUE REMOVED OR ALTERED: Gastric specimen obtained to rule out Helicobacter pylori COMPLICATIONS: None. ESTIMATED BLOOD LOSS: None. INTRAOPERATIVE FINDINGS: As described above. PROCEDURE: Patient tolerated the procedure well. No immediate postprocedure complications are noted. Patient discharged back to his room in good condition. Discharge diet: Regular. Discharge activity: Regular. Follow-up as outpatient, wait on biopsies
--- NOTE | 2017-01-14 15:23 | PDOC DISCHARGE SUMMARY ---
General - Admit/Disc Date/PCP Admission Date/Primary Care Provider: 01/13/17 16:21 MARITZA WEATHERS PA-C Discharge Date: 01/14/17 - Discharge Diagnosis (1) Alaina-Muro tear Is this a current diagnosis for this admission?: YesSummary: no heavy lifting or straining for at least 2 wks; take PPI bid for 2 wks and f/ u with dr story as instructed (2) Gastritis and duodenitis Is this a current diagnosis for this admission?: YesSummary: avoid hot/spicy foods, ETOH and NSAIDs other than Tylenol for next 2 wks; f/u with GI as instructed, return to hospital for worsening symptoms. (3) Upper GI bleed Is this a current diagnosis for this admission?: YesSummary: no active bleeding found on EGD and H/H actually trended up in spite of dilutional effect of IVFs indicating no further blood loss. (4) PUD (peptic ulcer disease) Is this a current diagnosis for this admission?: YesSummary: ruled out with EGD, no evidence for ulcerative disease (5) History of Idvri-Gvabbdbcw-Ind[place] (WPW) syndrome Is this a current diagnosis for this admission?: Yes - Additional Information Resuscitation Status: Full Code Discharge Diet: Regular Discharge Activity: Activity As Tolerated Home Medications: Alprazolam [Xanax] 1 mg PO TIDP PRN 01/13/17 Citalopram Hydrobromide [Celexa 20 mg Tablet] 20 mg PO DAILY 01/13/17 Hydrocodone/Acetaminophen [Victor 5-325 mg Tablet] 1 tab PO Q4HP PRN #14 tablet 01/14/17 Omeprazole Magnesium [Prilosec Otc] 40 mg PO BID 14 Days 01/14/17 Promethazine HCl [Phenergan 25 mg Tablet] 25 mg PO Q6HP PRN #10 tablet 01/14/17 History of Present Illness Patient complains of: vomiting blood History of Present Illness: SAMEER SALGADO is a 31 year old male presents to the ED from home with 3d hx of vomiting blood and prior hx of PUD and UGIB requiring endoscopy and cautery without etiology identified. Hospital Course Hospital Course: This started suddenly after working out at the gym with vomiting of blood and epigastric pain which continued until he couldn't take the pain anymore. He denies NSAID, steroid (anabolic or otherwise) use, ETOH and has no recollection of H. Pylori in the past. He doesn't routinely take acid suppressors but admits a love for hot, spicy food in spite of his hx. He denies family hx of GI disease, gastrin tumors, PUD, malignancy, etc. he denies weight loss, night sweats, swollen glands. eval in ED demonstrated active hematemesis, he remains hemodynamically stable and AXR shows no evidence for free air or perforation. we were asked to admit for further management. dr story, GI consulted from the ED. he was admitted and started on PPI tx with pain and nausea control, dr story consulted and took for EGD with findings of mild gastritis, duodenitis and healing Alaina-Muro tear likely accounting for his symptoms and GIB. no other obvious source of blood loss identified. his H/H acutally trended up in spite of the dilutional effect of IVFs indicating no ongoing blood loss. he remained hemodynamically stable and is ready for d/c home. he should f/u as noted above, work note provided, Rxs placed on chart. Physical Exam Vital Signs: Temp Pulse Resp BP Pulse Ox 98.4 F 64 11 L 118/61 96 01/14/17 14:08 01/14/17 14:08 01/14/17 14:08 01/14/17 14:08 01/14/17 14:08 Intake & Output 01/13/17 01/14/17 01/15/17 06:59 06:59 06:59 Intake Total 574 250 Output Total 300 0 Balance 274 250 Weight 133.6 kg 133.6 kg Results Laboratory Results: 01/14/17 05:30 01/13/17 01/14/17 23:26 05:30 WBC 7.8 6.9 RBC 4.63 4.58 Hgb 13.9 D 13.6 Hct 40.7 39.6 MCV 88 87 MCH 30.1 29.7 MCHC 34.2 34.4 RDW 13.3 13.2 Plt Count 227 222 Impressions: Acute Abdomen Series 01/13/17 13:30 IMPRESSION: NO RADIOGRAPHIC EVIDENCE FOR ACUTE ABDOMINAL DISEASE. Qualifiers PATEINT BEING DISCHARGED WITH ANY OF THE FOLLOWING DIAGNOSIS?: No VTE patient discharged on overlapping Therapy?: No Reason(s) for not prescribing Overlap Therapy:: Not indicated Plan Discharge Plan: home with PPI for next 2 wks, further restrictions noted above; f/u GI as instructed, f/u PCP in 1-2 wks or sooner for recurrent symptoms. return to the ED for worsening symptoms. Time Spent: Greater than 30 Minutes
[2017-01-14 16:06] VITALS: BP 130/62
== END 2017-01-14 17:06 | disposition home or self-care (01) | DRG 370 ==
LOC: ER 11:05 → EH 16:21 → 4S 19:04
PROVIDERS: ADMIT Internal Medicine; ATTEND Internal Medicine
PROC: 0DB68ZX Excision of Stomach, Via Natural or Artificial Opening Endoscopic, Diagnostic (ICD-10-PCS; principal; 2017-01-14 12:30)
DX: K22.6 Gastro-esophageal laceration-hemorrhage syndrome (principal); K92.2 Gastrointestinal hemorrhage, unspecified; K29.70 Gastritis, unspecified, without bleeding; K29.80 Duodenitis without bleeding; I10 Essential (primary) hypertension; F90.9 Attention-deficit hyperactivity disorder, unspecified type; F32.9 Major depressive disorder, single episode, unspecified; Z87.11 Personal history of peptic ulcer disease
CPT/HCPCS: 36415; 43239; 740; 74022; 80053; 81001; 83690; 85025; 85027; 85610; 85730; 88305; 88342; 99285; J2250; J2270; J2405; J2704; J3490; J7030; S0164

== ENCOUNTER 2017-01-23 19:48 | Observation (INO) | payer BC ==
[2017-01-23] MEDS ORDERED: ASPIRIN 81 MG TABLET, CHEWABLE PO ONE (20:19)
--- NOTE | 2017-01-23 20:26 | ER Document Report ---
ED Medical Screen (RME) - General Chief Complaint: Palpitations Stated Complaint: CHEST PAIN,PALPITATIONS Time Seen by Provider: 01/23/17 20:12 Mode of Arrival: Ambulatory Information source: Patient TRAVEL OUTSIDE OF THE [place] IN LAST 30 DAYS: No - HPI Onset: Just prior to arrival Onset/Duration: Sudden Context: SUDDEN UNPROVOKED ONSET WHILE ACCOMPANYING HIS MOTHER ON A SHOPPING TRIP. Quality of pain: Sharp Severity: Moderate Associated Symptoms: Chest pain, Dizzy/lightheaded, Nausea, Shortness of breath Exacerbated by: Denies Relieved by: Denies Similar symptoms previously: No Recently seen / treated by doctor: No - Related Data Smoking: Cigarettes, Less than 1 pack/day Frequency of alcohol use: Occasional Drug Abuse: None Allergies/Adverse Reactions: latex Allergy (Verified 01/13/17 11:14) Past Medical History - General Information source: Patient - Social History Cigarette use (# per day): Yes Chew tobacco use (# tins/day): No Frequency of alcohol use: Rare Drug Abuse: None Lives with: Spouse/Significant other Family history: None - Past Medical History Cardiac Medical History: Reports: Hx Hypertension, Other - PSVT, VT Pulmonary Medical History: Reports: None EENT Medical History: Reports: None Neurological Medical History: Reports: None Endocrine Medical History: Reports: None. Denies: Hx Diabetes Mellitus Type 1 Renal/ Medical History: Reports: None. Denies: Hx Peritoneal Dialysis Malignancy Medical History: Reports None GI Medical History: Reports: None Musculoskeltal Medical History: Reports Hx Musculoskeletal Trauma Psychiatric Medical History: Reports: Hx Attention Deficit Hyperactivity Disorder, Hx Depression Traumatic Medical History: Reports: Hx Fractures - Ankle Past Surgical History: Reports: Hx Cardiac Catheterization, Hx Cardiac Surgery - ablation x 2, Hx Cholecystectomy, Other - cardiac ablation for WPW - Immunizations Immunizations up to date: Yes Hx Diphtheria, Pertussis, Tetanus Vaccination: Yes Review of Systems - Review of Systems Constitutional: Diaphoresis, Weakness EENT: No symptoms reported Cardiovascular: See HPI Respiratory: See HPI Gastrointestinal: See HPI Genitourinary: No symptoms reported Musculoskeletal: No symptoms reported Skin: No symptoms reported Neurological/Psychological: See HPI Physical Exam - Vital signs Vitals: Temp Pulse Resp BP Pulse Ox 98.4 F 126 H 24 H 137/90 H 100 01/23/17 20:10 01/23/17 20:10 01/23/17 20:10 01/23/17 20:10 01/23/17 20:10 Interpretation: Hypertensive, Tachycardic, Tachypneic. No: Hypoxic - General General appearance: Alert, Anxious, Other - TREMULOUS In distress: None - HEENT Head: Normocephalic Eyes: Normal Conjunctiva: Normal Ears: Normal Nasal: Normal Mouth/Lips: Normal Mucous membranes: Normal - Respiratory Respiratory status: No respiratory distress - Cardiovascular Rhythm: Regular, Tachycardia - Abdominal Inspection: Normal, Obese - Back Back: Normal - Extremities General upper extremity: Normal inspection General lower extremity: Normal inspection. No: Edema - Neurological Neuro grossly intact: Yes Cognition: Normal Orientation: AAOx4 - Psychological Associated symptoms: Anxious - Skin Skin Temperature: Warm Skin Moisture: Dry Skin Color: Normal Skin Turgor: Elastic Course - Vital Signs Vital signs: Temp Pulse Resp BP Pulse Ox 98.4 F 126 H 24 H 137/90 H 100 01/23/17 20:10 01/23/17 20:10 01/23/17 20:10 01/23/17 20:10 01/23/17 20:10 - EKG Interpretation by [facility] EKG shows normal: Sinus rhythm, [place], Intervals, QRS Complexes. abnormal: ST-T Waves - BORDERLINE T ABNLS. Rate: Tachycardia When compared to previous EKG there are: Changes noted - DECREASED R WAVES INFERIORLY
[2017-01-23 20:41] LABS: ABSOLUTE BASOPHILS # (AUTO) 0.1 10^3/uL (0.0-0.2); ABSOLUTE EOSINOPHILS # (AUTO) 0.1 10^3/uL (0.0-0.6); ABSOLUTE LYMPHOCYTES (AUTO) 4.2 10^3/uL (0.5-4.7); ABSOLUTE MONOCYTES (AUTO) 1.2 10^3/uL (0.1-1.4); ABSOLUTE NEUT (AUTO) 7.1 10^3/uL (1.7-8.2); BASOPHILS % (AUTO) 0.9 % (0-2); EOSINOPHILS % (AUTO) 0.9 % (0-6); HEMATOCRIT 45.8 % (37.9-51.0); HEMOGLOBIN 15.9 g/dL (13.5-17.0); HGB HCT DIFFERENCE 1.9; LYMPHOCYTES % (AUTO) 32.9 % (13-45); MEAN CORPUSCULAR HEMOGLOBIN 30.2 pg (27.0-33.4); MEAN CORPUSCULAR HGB CONC 34.7 g/dL (32.0-36.0); MEAN CORPUSCULAR VOLUME 87 fl (80-97); MONOCYTES % (AUTO) 9.5 % (3-13); RED BLOOD COUNT 5.27 10^6/uL (4.35-5.55); RED CELL DISTRIBUTION WIDTH 13.3 % (11.5-14.0); SEGMENTED NEUTROPHILS % (AUTO) 55.8 % (42-78); WHITE BLOOD COUNT 12.8 10^3/uL (4.0-10.5)
[2017-01-23] MEDS ORDERED: NORMAL SALINE 1000 ML 1,000 ML IV ONE (20:42)
[2017-01-23] MEDS ORDERED: ONDANSETRON HCL INJ/PF 4 MG/2 ML SDV IV ONE ×2 (20:42→22:51)
[2017-01-23] MEDS ORDERED: MORPHINE SULFATE 10 MG/ML INJ IV PRN (20:42)
--- NOTE | 2017-01-23 20:45 | ER Document Report ---
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 Does describe it as a constant, stabbing, sharp pain to the left chest. It is worsened by exertion. Nothing improves the pain. Denies any history of similar symptoms in the past. Patient was recently admitted to the hospital for peptic ulcer disease and did have an endoscopy which revealed a mild Alaina-Muro tear. He denies any recent trauma the chest. No history of DVT or pulmonary embolus. No history of connective tissue disorders. TRAVEL OUTSIDE OF THE [place] IN LAST 30 DAYS: No - Related Data Allergies/Adverse Reactions: latex Allergy (Verified 01/13/17 11:14) Past Medical History - General Information source: Patient - Social History Smoking Status: Current Every Day Smoker Cigarette use (# per day): Yes Chew tobacco use (# tins/day): No Frequency of alcohol use: Rare Drug Abuse: None Lives with: Spouse/Significant other Family History: Hypertension, Malignancy - Past Medical History Cardiac Medical History: Reports: Hx Hypertension, Other - PSVT, VT Pulmonary Medical History: Reports: None EENT Medical History: Reports: None Neurological Medical History: Reports: None Endocrine Medical History: Reports: None. Denies: Hx Diabetes Mellitus Type 1 Renal/ Medical History: Reports: None. Denies: Hx Peritoneal Dialysis Malignancy Medical History: Reports None GI Medical History: Reports: None Musculoskeltal Medical History: Reports Hx Musculoskeletal Trauma Psychiatric Medical History: Reports: Hx Attention Deficit Hyperactivity Disorder, Hx Depression Traumatic Medical History: Reports: Hx Fractures - Ankle Past Surgical History: Reports: Hx Cardiac Catheterization, Hx Cardiac Surgery - ablation x 2, Hx Cholecystectomy, Other - cardiac ablation for WPW - Immunizations Immunizations up to date: Yes Hx Diphtheria, Pertussis, Tetanus Vaccination: Yes Review of Systems - Review of Systems Notes: Constitutional: Negative for fever. HENT: Negative for sore throat. Eyes: Negative for visual changes. Cardiovascular: Positive for chest pain and palpitation Respiratory: Negative for shortness of breath. Gastrointestinal: Negative for abdominal pain, positive for nausea Genitourinary: Negative for dysuria. Musculoskeletal: Negative for back pain. Skin: Negative for rash. Neurological: Negative for headaches, weakness or numbness. 10 point ROS negative except as marked above and in HPI. Physical Exam - Vital signs Vitals: Temp Pulse Resp BP Pulse Ox 98.4 F 126 H 24 H 137/90 H 100 01/23/17 20:10 01/23/17 20:10 01/23/17 20:10 01/23/17 20:10 01/23/17 20:10 Interpretation: Tachycardic, Tachypneic Notes: PHYSICAL EXAMINATION: GENERAL: Ill in appearance, diaphoretic, tachypneic HEAD: Atraumatic, normocephalic. EYES: Pupils equal round and reactive to light, extraocular movements intact, sclera anicteric, conjunctiva are normal. ENT: nares patent, oropharynx clear without exudates. Moist mucous membranes. NECK: Normal range of motion, supple without lymphadenopathy LUNGS: Breath sounds clear to auscultation bilaterally and equal. No wheezes rales or rhonchi. HEART: Regular tachycardia without murmurs ABDOMEN: Soft, nontender, normoactive bowel sounds. No guarding, no rebound. No masses appreciated. EXTREMITIES: Normal range of motion, no pitting or edema. No cyanosis. NEUROLOGICAL: No focal neurological deficits. Moves all extremities spontaneously and on command. PSYCH: Tremulous SKIN: Warm, Dry, normal turgor, no rashes or lesions noted. Course - Re-evaluation Re-evalutation: 01/23/17 20:43 Patient arrives tachycardic, diaphoretic, ill in appearance, tremulous complaining of left costophrenic angle pain and left upper quadrant abdominal pain as well as palpitations and shortness of breath. Patient is a history of ventricular tachycardia and palpitations but EKG does shows a sinus tachycardia. He does also note associated chest pain. He has no history of ACS , aortic pathology, or DVT or pulmonary embolus. I was immediately called to see this patient given his initial your ill appearance. Breath sounds are clear bilaterally, I do not suspect an acute pneumothorax. Pulmonary embolus is on the differential given his tachycardia, shortness of breath, left costophrenic angle discomfort and history of acute onset. D-dimer will be obtained to further evaluate. I am also concerned about possible delayed bowel perforation in the setting of a recent endoscopy so a KUB will be obtained to evaluate for free air in the abdomen. Will also obtain a stat portable chest x- ray to further exclude esophageal perforation, pneumothorax. Analgesia, IV fluids, nitroglycerin will be provided. Will reassess frequently. 01/23/17 21:16 Patient continues to have chest pain despite receiving IV morphine, palpitations continued as well as tremulousness despite IV anxiolysis. Patient now states that the pain is radiating to his back, bilateral upper extremities. d-dimer is noted to be normal however, at this point I am increasing concern for possible aortic pathology and patient will go for a stat CT of the chest. Will also repeat an EKG at this time. Nitroglycerin also be administered. Patient remains tachycardic and ill in appearance. 01/23/17 23:33 CTA is normal. Initial troponin is normal. D-dimer is likewise normal. The etiology of patient's symptoms is unclear at this time although he overall appears improved, his heart rate remains elevated at 148-158. Repeat EKGs have not demonstrated any ischemic changes. 01/24/17 00:19 Patient continues to have left-sided chest pain and remains tachycardic, still remains somewhat uncomfortable in appearance. I have been unable to get him completely pain-free despite giving a total of 16 mg of morphine, 3 sublingual tablets of nitroglycerin, as well as doses of Valium and Ativan. 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 He has not had however had any irregular rhythms here. [facility] with [facility] where he has follow-up with cardiology in the past for transfer. 01/24/17 01:45 I have discussed this case with Dr. Ashley at [facility] is not seen indication for transfer given absence of positive cardiac markers and EKGs without ischemic changes. I have also discussed with our configuration management analyst Dr. Brenner who believes that this patient can remain here at [facility] for further evaluation. Dr. Finney has accepted the patient for observation. - Vital Signs Vital signs: Temp Pulse Resp BP Pulse Ox 98.4 F 126 H 28 H 111/72 97 01/23/17 20:10 01/23/17 20:10 01/24/17 02:01 01/24/17 02:01 01/24/17 00:32 - Laboratory Result Diagrams: 07/22/17 20:31 01/23/17 20:31 Laboratory results interpreted by me: 01/23/17 01/23/17 20:31 20:31 WBC 12.8 H Total Protein 8.3 H Albumin 5.2 H - Diagnostic Test Radiology reviewed: Image reviewed, Reports reviewed Radiology results interpreted by me: 01/24/17 01:46 Chest x-ray: No acute infiltrate or pneumothorax - EKG Interpretation by Me Additional EKG results interpreted by me: 01/24/17 01:47 EKG 1: Sinus tachycardia. Rate 127. QTC is 431. Critical Care Note - Critical Care Note Total time excluding time spent on procedures (mins): 42 Comments: Critical care time spent obtaining history from patient or surrogate, discussions with consultants, development of treatment plan with patient or surrogate, evaluation of patient's response to treatment, examination of patient , ordering and performing treatments and interventions, ordering and review of laboratory studies, re-evaluation of patient's condition, ordering and review of radiographic studies and review of old charts Discharge - Discharge Clinical Impression: History of Mqior-Kfseqrfra-Albxj (WPW) syndrome Chest pain Qualifiers: Chest pain type: unspecified Qualified Code(s): R07.9 - Chest pain, unspecified Disposition: AGAINST MEDICAL ADVICE Admitting Provider: Hospitalist [facility] Admitted: Telemetry
[2017-01-23] MEDS ORDERED: LORAZEPAM INJ 2 MG/1 ML VIAL IV ONE (20:46)
[2017-01-23 20:56] LABS: ALANINE AMINOTRANSFERASE 58 U/L (21-72); ALBUMIN 5.2 g/dL (3.5-5.0); ALKALINE PHOSPHATASE 81 U/L (38-126); ANION GAP 17 (5-19); ASPARTATE AMINO TRANSFERASE 33 U/L (17-59); BILIRUBIN,DIRECT 0.4 mg/dL (0.0-0.4); BILIRUBIN,TOTAL 0.9 mg/dL (0.2-1.3); BLOOD UREA NITROGEN 13 mg/dL (7-20); CALCIUM 10.2 mg/dL (8.4-10.2); CARBON DIOXIDE 22 mmol/L (22-30); CHLORIDE 102 mmol/L (98-107); CREATINE KINASE 99 U/L (55-170); CREATININE RESULT 1.05 mg/dL (0.52-1.25); GLUCOSE 104 mg/dL (75-110); POTASSIUM 3.7 mmol/L (3.6-5.0); SODIUM 141.4 mmol/L (137-145); TOTAL PROTEIN 8.3 g/dL (6.3-8.2)
[2017-01-23 21:08] LABS: CREATINE KINASE MB 0.56 ng/mL (<4.55)
--- NOTE | 2017-01-23 21:10 | RADIOLOGY REPORT (SQ) ---
EXAM DESCRIPTION: CHEST SINGLE VIEW COMPLETED DATE/TIME: 01/23/2017 8:49 pm REASON FOR STUDY: CHEST PAIN, PALPITATIONS COMPARISON: 10/07/2016 EXAM PARAMETERS: NUMBER OF VIEWS: One view. TECHNIQUE: Single frontal radiographic view of the chest acquired. RADIATION DOSE: NA LIMITATIONS: None. FINDINGS: LUNGS AND PLEURA: No opacities, masses or pneumothorax. No pleural effusion. MEDIASTINUM AND HILAR STRUCTURES: No masses. Contour normal. HEART AND VASCULAR STRUCTURES: Heart normal in size. Normal vasculature. BONES: No acute findings. HARDWARE: None in the chest. OTHER: No other significant finding. IMPRESSION: NO ACUTE RADIOGRAPHIC FINDING IN THE CHEST. TECHNICAL DOCUMENTATION: JOB ID: [id number]
[2017-01-23 21:15] LABS: TROPONIN I < 0.012 ng/mL
[2017-01-23] MEDS: NITROGLYCERIN 0.4 MG/TAB 25 TAB/BOTTLE SL PRN (21:16)
--- NOTE | 2017-01-23 21:36 | RADIOLOGY REPORT (SQ) ---
EXAM DESCRIPTION: KUB/ABDOMEN (SINGLE VIEW) COMPLETED DATE/TIME: 01/23/2017 9:15 pm REASON FOR STUDY: eval free air COMPARISON: 01/13/2017 NUMBER OF VIEWS: One view. TECHNIQUE: Supine radiographic image of the abdomen acquired. LIMITATIONS: None. FINDINGS: BOWEL GAS PATTERN: Normal bowel gas pattern. No dilated loops. CALCIFICATIONS: No suspicious calcifications. SOFT TISSUES: No gross mass or suggestion of organomegaly. HARDWARE: None in the abdomen. BONES: No acute fracture. No worrisome bone lesions. OTHER: No other significant finding. IMPRESSION: NO RADIOGRAPHIC EVIDENCE FOR ACUTE ABDOMINAL DISEASE. TECHNICAL DOCUMENTATION: JOB ID: [id number] [employer]- All Rights Reserved
--- NOTE | 2017-01-23 22:22 | RADIOLOGY REPORT (SQ) ---
EXAM DESCRIPTION: CTA CHEST COMPLETED DATE/TIME: 01/23/2017 9:59 pm REASON FOR STUDY: aortic dissection, bilateral arm pain, cp COMPARISON: None. TECHNIQUE: CT scan of the chest performed using helical scanning technique with dynamic intravenous contrast injection. Images reviewed with lung, soft tissue and bone windows. Reconstructed coronal and sagittal MPR images reviewed. Additional 3 dimensional post-processing performed to develop Maximal Intensity Projection images (GA P). All images stored on PACS. All CT scanners at this facility use dose modulation, iterative reconstruction, and/or weight based d osing when appropriate to reduce radiation dose to as low as reasonably achievable (ALARA). [facility]: Dose Right [facility]: CareDose [facility]: Dose Right [facility]: Teradose 4D [facility]: BrightArch CONTRAST TYPE AND DOSE: contrast/concentration: Isovue 370.00 mg/ml; Total Contrast Delivered: 86.0 ml; Total Saline Delivered: 110.0 ml RENAL FUNCTION: BUN 13; creatinine 1.05 RADIATION DOSE: Up-to-date CT equipment and radiation dose reduction techniques were employed. CTDIv ol: 23.2 - 33.3 mGy. DLP: 1283 mGy-cm. . LIMITATIONS: None. FINDINGS: LUNGS AND PLEURA: No masses, infiltrates, pneumothorax. No pleural effusions, calcificati ons. AORTA AND GREAT VESSELS: No aneurysm or dissection. HEART: No pericardial effusion. PULMONARY ARTERIES: No emboli visualized in the main pulmonary arteries or the segmental branches. HILAR AND MEDIASTINAL STRUCTURES: No identified masses or abnormal nodes. HARDWARE: None in the chest. UPPER ABDOMEN: No significant findings. Limited exam. THYROID AND OTHER SOFT TISSUES: No masses. No adenopathy. BONES: No acute or significant finding. OTHER: No other significant finding. IMPRESSION: NORMAL CTA OF THE CHEST. NO PULMONARY EMBOLI. TECHNICAL DOCUMENTATION: JOB ID: [id number] Quality ID # [id number]: Final reports with documentation of one or more dose reduction techniques (e.g., Au tomated exposure control, adjustment of the mA and/or kV according to patient size, use of iterative reconstruction technique) 2010 [employer]- All Rights Reserved
[2017-01-23] MEDS ORDERED: MORPHINE SULFATE 10 MG/ML INJ IV ONE (22:43)
[2017-01-23] MEDS ORDERED: DILTIAZEM HCL/D5W 125 ML IV PRN (23:33)
[2017-01-23] MEDS ORDERED: DIAZEPAM INJ 10 MG/2 ML DISP.SYRIN IV ONE (23:35)
[2017-01-24] MEDS ORDERED: KETOROLAC TROMETHAMINE INJ/PF 30 MG/1 ML SDV IV ONE (00:19)
[2017-01-24] MEDS: NITROGLYCERIN 0.4 MG/TAB 25 TAB/BOTTLE SL PRN ×2 (00:30→00:35)
[2017-01-24] MEDS ORDERED: MAG HYDROX/AL HYDROX/SIMETH SUSP 30 ML UDCUP PO ONE (01:18)
[2017-01-24] MEDS ORDERED: METOCLOPRAMIDE HCL ORAL SOLN 10 MG/10 ML UDCUP PO ONE (01:18)
[2017-01-24] MEDS ORDERED: LIDOCAINE 2% VISCOUS SOLN 20 ML UDCUP PO ONE (01:18)
[2017-01-24] MEDS ORDERED: ALPRAZOLAM 0.5 MG TABLET PO PRN (01:39)
[2017-01-24] MEDS ORDERED: PROMETHAZINE HCL 25 MG TABLET PO ONE (02:00)
[2017-01-24] MEDS ORDERED: ATORVASTATIN CALCIUM 80 MG TABLET PO ONE (02:00)
[2017-01-24] MEDS ORDERED: SUCRALFATE SUSP 1 GM/10 ML UDCUP PO ONE (02:00)
[2017-01-24] MEDS ORDERED: ACETAMINOPHEN 325 MG TABLET PO PRN (02:43)
[2017-01-24 02:51] VITALS: BP 111/72
[2017-01-24 02:57] LABS: CREATINE KINASE MB 0.46 ng/mL (<4.55)
[2017-01-24 03:03] LABS: TROPONIN I < 0.012 ng/mL
--- NOTE | 2017-01-24 03:13 | PDOC H&P ---
History of Present Illness Admission Date/PCP: 01/24/17 02:06 Patient complains of: Chest pain History of Present Illness: SAMEER SALGADO is a 31 year old male with a remote past medical history of depression, anxiety, SVT, WPW, and recent duodenitis and Alania-Muro tear. He has been in his usual state of health until approximately 6 hours prior to presentation developing left-sided chest pain associated with palpitations which with intermittent associated with nausea vomiting and seek evaluation emergency room where he found to be tremulous and tachycardic his pain is electric and sharp in nature that radiates downwards to his abdomen and worsened by ambulating and deep breath. He denies previous episode he admits resumption of Adderall in the last 24 hours. He takes Xanax but is unable to recall the name of his antidepressant. Patient states he has taken that supplemental medication for exercise but none in the past month. In the emergency room he presents agitated and diaphoretic with nausea he receives IV Valium and morphine and with an unremarkable workup including EKG cardiac enzymes 2 and a CTA of the chest and abdomen he is referred to the hospitalist for observation. Following evaluation by MD patient states he is a "big boy and requires a lot of pain medicine". MD declined additional narcotic request given normal vital signs and unimpressive workup. After refusing additional narcotics the patient leaves AMA. Past Medical History Cardiac Medical History: Reports: Hypertension, Other - PSVT, VT Pulmonary Medical History: Reports: None EENT Medical History: Reports: None Neurological Medical History: Reports: None Endocrine Medical History: Reports: None Denies: Diabetes Mellitus Type 1 Renal/ Medical History: Reports: None Malignancy Medical History: Reports: None GI Medical History: Reports: None Psychiatric Medical History: Reports: Attention Deficit Hyperactivity Disorder, Depression Past Surgical History Past Surgical History: Reports: Cardiac Catheterization, Cholecystectomy, Other - cardiac ablation for WPW Social History Lives with: Spouse/Significant other Smoking Status: Current Every Day Smoker Cigarettes Packs Per Day: 0.3 Frequency of Alcohol Use: Social Hx Recreational Drug Use: No Drugs: None Hx Prescription Drug Abuse: No Family History Family History: Hypertension, Malignancy, Other - Sudden of infant sister and 1-month-old Parental Family History Reviewed: Yes Children Family History Reviewed: Yes Sibling(s) Family History Reviewed.: Yes Medication/Allergy Home Medications: Alprazolam [Xanax] 1 mg PO TIDP PRN 01/13/17 Citalopram Hydrobromide [Celexa 20 mg Tablet] 20 mg PO DAILY 01/13/17 Hydrocodone/Acetaminophen [Morrison 5-325 mg Tablet] 1 tab PO Q4HP PRN #14 tablet 01/14/17 Omeprazole Magnesium [Prilosec Otc] 40 mg PO BID 14 Days 01/14/17 Promethazine HCl [Phenergan 25 mg Tablet] 25 mg PO Q6HP PRN #10 tablet 01/14/17 Allergies/Adverse Reactions: latex Allergy (Verified 01/13/17 11:14) Review of Systems Constitutional: ABSENT: chills, fever(s), headache(s), weight gain, weight loss Eyes: ABSENT: visual disturbances Ears: ABSENT: hearing changes Cardiovascular: ABSENT: chest pain, dyspnea on exertion, edema, orthropnea, palpitations Respiratory: ABSENT: cough, hemoptysis Gastrointestinal: ABSENT: abdominal pain, constipation, diarrhea, hematemesis, hematochezia, nausea, vomiting Genitourinary: ABSENT: dysuria, hematuria Musculoskeletal: ABSENT: joint swelling Integumentary: ABSENT: rash, wounds Neurological: ABSENT: abnormal gait, abnormal speech, confusion, dizziness, focal weakness, syncope Psychiatric: ABSENT: anxiety, depression, homidical ideation, suicidal ideation Endocrine: ABSENT: cold intolerance, heat intolerance, polydipsia, polyuria Hematologic/Lymphatic: ABSENT: easy bleeding, easy bruising Physical Exam Vital Signs: Temp Pulse Resp BP Pulse Ox 98.4 F 126 H 28 H 111/72 97 01/23/17 20:10 01/23/17 20:10 01/24/17 02:01 01/24/17 02:01 01/24/17 00:32 General appearance: PRESENT: no acute distress, well-developed, well-nourished Head exam: PRESENT: atraumatic, normocephalic Eye exam: PRESENT: conjunctiva pink, EOMI, PERRLA. ABSENT: scleral icterus Ear exam: PRESENT: normal external ear exam Mouth exam: PRESENT: moist, tongue midline Neck exam: ABSENT: carotid bruit, JVD, lymphadenopathy, thyromegaly Respiratory exam: PRESENT: clear to auscultation sofia. ABSENT: rales, rhonchi, wheezes Cardiovascular exam: PRESENT: RRR. ABSENT: diastolic murmur, rubs, systolic murmur Pulses: PRESENT: normal dorsalis pedis pul Vascular exam: PRESENT: normal capillary refill GI/Abdominal exam: PRESENT: normal bowel sounds, soft, other - Left upper abdominal pain to palpation.. ABSENT: distended, guarding, mass, organolmegaly , rebound, tenderness Rectal exam: PRESENT: deferred Extremities exam: PRESENT: full ROM. ABSENT: calf tenderness, clubbing, pedal edema Neurological exam: PRESENT: alert, awake, oriented to person, oriented to place , oriented to time, oriented to situation, CN II-XII grossly intact. ABSENT: motor sensory deficit Psychiatric exam: PRESENT: appropriate affect, normal mood. ABSENT: homicidal ideation, suicidal ideation Skin exam: PRESENT: dry, intact, warm. ABSENT: cyanosis, rash Results Impressions: Chest X-Ray 01/23/17 20:19 IMPRESSION: NO ACUTE RADIOGRAPHIC FINDING IN THE CHEST. KUB X-Ray 01/23/17 20:42 IMPRESSION: NO RADIOGRAPHIC EVIDENCE FOR ACUTE ABDOMINAL DISEASE. Chest/Abdomen CTA 01/23/17 21:14 IMPRESSION: NORMAL CTA OF THE CHEST. NO PULMONARY EMBOLI. Assessment & Plan - Diagnosis (1) Chest pain Qualifiers: Chest pain type: unspecified Qualified Code(s): R07.9 - Chest pain, unspecified Is this a current diagnosis for this admission?: YesPlan: Atypical chest pain though the patient's pain is atypical there are multiple risk factors for coronary artery disease and subsequently will observe and evaluation of acute coronary syndrome versus coronary artery disease with anginal equivalents. Cardiac monitoring blood pressure Q6 hours ,TSH, lipid profile, serial cardiac enzymes and cardiac stress test (2) Abdominal pain Is this a current diagnosis for this admission?: YesPlan: Patient does have a recent history of duodenitis and Leonor Muro tear CT abdomen unremarkable, CBC and Chem-12 unremarkable. Will monitor with symptomatic nonnarcotic analgesia (3) Anxiety Is this a current diagnosis for this admission?: YesPlan: Strongly suggest discontinuation of Adderall with concurrent use of Xanax. Follow-up with mental health provider prescribing unknown antidepressant. Patient becomes angry at the suggestion Adderall may contribute to his symptoms. - Time Time Spent: 50 to 70 Minutes - Inpatient Certification Medical Necessity: Need Close Monitoring Due to Risk of Patient Decompensation
[2017-01-24] MEDS ORDERED: LANSOPRAZOLE 30 MG TAB.RAP.DR PO SCH (06:00)
[2017-01-24] MEDS ORDERED: CITALOPRAM HYDROBROMIDE 20 MG TABLET PO SCH (10:00)
--- NOTE | 2017-01-24 13:43 | EKG REPORT ---
SEVERITY:- BORDERLINE ECG - SINUS TACHYCARDIA BORDERLINE T WAVE ABNORMALITIES : Confirmed by: Yakelin Cabrera MD 24-Jan-2017 13:43:13
--- NOTE | 2017-01-24 13:43 | EKG REPORT ---
SEVERITY:- OTHERWISE NORMAL ECG - SINUS TACHYCARDIA : Confirmed by: Yakelin Cabrera MD 24-Jan-2017 13:43:08
[2017-01-24] MEDS ORDERED: ATORVASTATIN CALCIUM 80 MG TABLET PO SCH (22:00)
== END 2017-01-24 04:00 | disposition left against medical advice (07) ==
LOC: ER 19:48 → EH 01-24 01:41 → UNDOADMOB 01-24 02:06 → EH 01-24 02:06
PROVIDERS: ADMIT Internal Medicine; ATTEND Internal Medicine
DX: R07.89 Other chest pain (principal); R10.9 Unspecified abdominal pain; F41.9 Anxiety disorder, unspecified; R00.0 Tachycardia, unspecified; R06.82 Tachypnea, not elsewhere classified; Z53.21 Procedure and treatment not carried out due to patient leaving prior to being seen by health care provider; R25.1 Tremor, unspecified; R11.2 Nausea with vomiting, unspecified; R53.1 Weakness; R42 Dizziness and giddiness; E66.9 Obesity, unspecified; R61 Generalized hyperhidrosis; F90.9 Attention-deficit hyperactivity disorder, unspecified type; F32.9 Major depressive disorder, single episode, unspecified; R45.1 Restlessness and agitation; F17.210 Nicotine dependence, cigarettes, uncomplicated; Z90.49 Acquired absence of other specified parts of digestive tract; Z82.49 Family history of ischemic heart disease and other diseases of the circulatory system; Z79.899 Other long term (current) drug therapy; Z87.19 Personal history of other diseases of the digestive system; Z98.890 Other specified postprocedural states; Z68.39 Body mass index [BMI] 39.0-39.9, adult
CPT/HCPCS: 93005; 96376; 99291; 96361; 96374; 96375; 36415 ×2; 82553 ×2; 82550; 84443; 85025; 80053; 84484 ×2; 85379; 71010; 74000; 71275; 93010; J3360; J3490; J1885; J2270; J2060; J2405; J7030

== ENCOUNTER 2017-02-01 10:26 | Day surgery (SDC) | payer BC ==
[~2017-02-01 10:26] MED LIST: PROPOFOL INJ 200 MG/20 ML VIAL IV ONE
[2017-02-01] MEDS ORDERED: PROPOFOL INJ 200 MG/20 ML VIAL IV ONE (10:57)
[2017-02-01 12:55] VITALS: BP 112/81
--- NOTE | 2017-02-01 13:29 | Operative Report ---
Operative Report DATE OF SURGERY: 02/01/17 Operative Report: The risks, benefits and alternatives of the procedure including risks of bleeding, perforation requiring surgery are explained to the patient detail and informed consent was obtained. Patient was taken back to the endoscopy suite and placed in the left, lateral decubital position. The rectal examination was done which did not reveal any masses, tears or fissures. Timeout was called. Propofol medications administered. An Olympus video scope was inserted into the patient's rectum. The scope was then carefully advanced all the way to the cecum. The cecum was identified by the usual anatomical landmarks including the ileocecal valve as well as the appendiceal office. Photodocumentation is obtained. Prep is good. Scope was then sequentially pulled back via the various segments of the colon including the ascending colon, hepatic flexure, transverse colon, splenic flexure, descending colon finally to the rectosigmoid portions of the colon. Retroflexion maneuver was performed. PREOPERATIVE DIAGNOSIS: Rectal bleeding POSTOPERATIVE DIAGNOSIS: Internal hemorrhoids. Mild right-sided inflammation status post biopsy on the right side of the colon OPERATION: Colonoscopy with biopsy SURGEON: AZEEM RICHARDS ANESTHESIA: LMAC TISSUE REMOVED OR ALTERED: As noted above. COMPLICATIONS: None. ESTIMATED BLOOD LOSS: None. INTRAOPERATIVE FINDINGS: No masses, AVMs, diverticulosis noted. PROCEDURE: Patient tolerated the procedure well. No immediate postprocedure complications are noted. Patient discharged in good condition. Discharge date 02/01/2017. Discharge diet: Regular. Discharge activity: Regular. 2-3 week follow-up to discuss findings. Patient is instructed to call the office or proceed to the emergency room should there be any further problems or questions. We will wait on pathology.
== END 2017-02-01 12:34 | disposition home or self-care (01) ==
LOC: END 10:26
PROVIDERS: ATTEND Internal Medicine Gastroenterology
PROC: 0DBF8ZX Excision of Right Large Intestine, Via Natural or Artificial Opening Endoscopic, Diagnostic (ICD-10-PCS; principal; 2017-02-01 13:30)
DX: K52.9 Noninfective gastroenteritis and colitis, unspecified (principal); K64.8 Other hemorrhoids; K92.1 Melena; F17.210 Nicotine dependence, cigarettes, uncomplicated; Z87.11 Personal history of peptic ulcer disease; Z79.899 Other long term (current) drug therapy
CPT/HCPCS: 45380; 88305 ×2; J2704; 810

== ENCOUNTER 2017-02-03 00:43 | Observation (INO) | payer BC ==
[2017-02-03] MEDS ORDERED: PANTOPRAZOLE SODIUM 40 MG VIAL IV ONE (01:14)
[2017-02-03] MEDS ORDERED: MORPHINE SULFATE 10 MG/ML INJ IV ONE (01:15)
[2017-02-03] MEDS ORDERED: PANTOPRAZOLE SODIUM 40 MG VIAL IV PRN (01:15)
[2017-02-03] MEDS ORDERED: ONDANSETRON HCL INJ/PF 4 MG/2 ML SDV IV ONE ×2 (01:15→01:47)
[2017-02-03] MEDS ORDERED: NORMAL SALINE 1000 ML 1,000 ML IV ONE (01:17)
[2017-02-03 01:25] LABS: ABSOLUTE BASOPHILS # (AUTO) 0.1 10^3/uL (0.0-0.2); ABSOLUTE EOSINOPHILS # (AUTO) 0.1 10^3/uL (0.0-0.6); ABSOLUTE LYMPHOCYTES (AUTO) 2.9 10^3/uL (0.5-4.7); ABSOLUTE MONOCYTES (AUTO) 1.3 10^3/uL (0.1-1.4); BASOPHILS % (AUTO) 0.7 % (0-2); EOSINOPHILS % (AUTO) 0.7 % (0-6); HEMATOCRIT 47.1 % (37.9-51.0); HEMOGLOBIN 16.3 g/dL (13.5-17.0); HGB HCT DIFFERENCE 1.8; LYMPHOCYTES % (AUTO) 21.9 % (13-45); MEAN CORPUSCULAR HEMOGLOBIN 30.2 pg (27.0-33.4); MEAN CORPUSCULAR HGB CONC 34.6 g/dL (32.0-36.0); MEAN CORPUSCULAR VOLUME 87 fl (80-97); MONOCYTES % (AUTO) 9.8 % (3-13); RED BLOOD COUNT 5.39 10^6/uL (4.35-5.55); RED CELL DISTRIBUTION WIDTH 13.2 % (11.5-14.0); SEGMENTED NEUTROPHILS % (AUTO) 66.9 % (42-78); WHITE BLOOD COUNT 13.4 10^3/uL (4.0-10.5)
[2017-02-03 01:41] LABS: ALANINE AMINOTRANSFERASE 50 U/L (21-72); ALBUMIN 5.2 g/dL (3.5-5.0); ALKALINE PHOSPHATASE 77 U/L (38-126); ANION GAP 14 (5-19); ASPARTATE AMINO TRANSFERASE 27 U/L (17-59); BILIRUBIN,DIRECT 0.3 mg/dL (0.0-0.4); BILIRUBIN,TOTAL 0.7 mg/dL (0.2-1.3); BLOOD UREA NITROGEN 10 mg/dL (7-20); CALCIUM 9.8 mg/dL (8.4-10.2); CARBON DIOXIDE 25 mmol/L (22-30); CHLORIDE 101 mmol/L (98-107); GLUCOSE 119 mg/dL (75-110); LIPASE 76.7 U/L (23-300); POTASSIUM 3.8 mmol/L (3.6-5.0); SODIUM 140.2 mmol/L (137-145); TOTAL PROTEIN 8.4 g/dL (6.3-8.2)
[2017-02-03] MEDS ORDERED: FENTANYL CITRATE INJ/PF 100 MCG/2 ML AMPUL IV ONE ×2 (01:47→02:39)
[2017-02-03] MEDS ORDERED: PROMETHAZINE HCL INJ 25 MG/1 ML VIAL IM ONE (01:47)
--- NOTE | 2017-02-03 01:47 | RADIOLOGY REPORT (SQ) ---
EXAM DESCRIPTION: CHEST SINGLE VIEW COMPLETED DATE/TIME: 02/03/2017 1:24 am REASON FOR STUDY: vomiting blood post EGD COMPARISON: CTA and CR, 01/23/2017. EXAM PARAMETERS: NUMBER OF VIEWS: One view. TECHNIQUE: Single frontal radiographic view of the chest acquired. RADIATION DOSE: NA LIMITATIONS: None. FINDINGS: LUNGS AND PLEURA: No opacities, masses or pneumothorax. No pleural effusion. MEDIASTINUM AND HILAR STRUCTURES: No masses. Contour normal. HEART AND VASCULAR STRUCTURES: Heart normal in size. Normal vasculature. BONES: No acute findings. HARDWARE: None in the chest. OTHER: No other significant finding. IMPRESSION: NO ACUTE RADIOGRAPHIC FINDING IN THE CHEST. TECHNICAL DOCUMENTATION: JOB ID: [id number]
--- NOTE | 2017-02-03 01:53 | ER Document Report ---
ED General - General Chief Complaint: Vomiting Stated Complaint: WEAKNESS AND VOMITING BLOOD Time Seen by Provider: 02/03/17 01:07 Notes: Patient is a 31-year-old male who presents with complaint of vomiting blood and severe epigastric pain distress afternoon. Yesterday he had a upper GI endoscopy as well as a colonoscopy performed by Dr. Mortensen. He is unsure if there is any biopsies performed. He says he does have gastric ulcers. No fevers. No diarrhea. No blood in his stool. No other complaints at this time. TRAVEL OUTSIDE OF THE [place] IN LAST 30 DAYS: No - Related Data Allergies/Adverse Reactions: latex Allergy (Verified 02/03/17 16:46) Home Medications: Current Home Medications Dextroamphetamine/Amphetamine [Adderall 20 mg Tablet] 1 tab PO DAILY 02/03/17 [ History] Past Medical History - Social History Smoking Status: Never Smoker Frequency of alcohol use: None Drug Abuse: None Family History: Hypertension, Malignancy - Past Medical History Cardiac Medical History: Reports: Hx Hypertension Denies: Hx Coronary Artery Disease, Hx Heart Attack Pulmonary Medical History: Denies: Hx Asthma, Hx Bronchitis, Hx COPD, Hx Pneumonia Neurological Medical History: Denies: Hx Cerebrovascular Accident, Hx Seizures Endocrine Medical History: Denies: Hx Diabetes Mellitus Type 1 Renal/ Medical History: Denies: Hx Peritoneal Dialysis Musculoskeltal Medical History: Denies Hx Arthritis, Reports Hx Musculoskeletal Trauma Psychiatric Medical History: Reports: Hx Attention Deficit Hyperactivity Disorder, Hx Depression Traumatic Medical History: Reports: Hx Fractures - Ankle Past Surgical History: Reports: Hx Cardiac Catheterization, Hx Cardiac Surgery - ablation x 2, Hx Cholecystectomy, Other - cardiac ablation for WPW - Immunizations Immunizations up to date: Yes Hx Diphtheria, Pertussis, Tetanus Vaccination: Yes Physical Exam - Vital signs Vitals: Temp Pulse Resp BP Pulse Ox 98.5 F 130 H 18 125/88 H 100 02/03/17 00:51 02/03/17 00:51 02/03/17 00:51 02/03/17 00:51 02/03/17 00:51 Course - Re-evaluation Re-evalutation: 02/03/17 02:01 Patient's chest x-ray showed no evidence of free air underneath the diaphragm and I do not see any pneumomediastinum on chest x-ray itself. Patient still has a lot of pain and vomiting. He did vomit more here but there is no blood and his most recent emesis. Still tachycardic looks very uncomfortable. I sent him for CT scan about the chest abdomen and pelvis. Once that is back I will give Dr. Mortensen a call. 02/03/17 02:41 Patient is still having pain but his heart rate is much improved. His heart rate was as high as 130 earlier. His heart rate is now the 90s. Blood pressure still normalized. CT scans are negative. I have attempted to contact Dr. Mortensen. The shear operator automatic said that he did not pick up operator the phone and therefore they left a message to call me back. 02/03/17 03:[address] Melendez on the phone. He says he did scope the patient yesterday but was a colonoscopy. The upper GI endoscopy was done on January 13. He says that was normal. He said the colonoscopy yesterday was normal as well. He says is not really sure why the patient gets the pain in the vomiting. Patient's heart rate continues to be much more improved. Still some epigastric pain but is improving. He has not had any further hematemesis here in the ER. At [facility] appropriate to admit the patient for observation being that he has pictures were he had hematemesis at home and he had severe pain and tachycardia upon arrival. I did speak with Dr. Finney who agrees to come evaluate the patient. 02/04/17 03:35 - Vital Signs Vital signs: Temp Pulse Resp BP Pulse Ox 98.5 F 60 15 94/52 L 94 02/04/17 00:00 02/04/17 01:25 02/04/17 00:00 02/04/17 00:00 02/04/17 00:00 - Laboratory Result Diagrams: 02/03/17 21:50 02/03/17 01:12 Laboratory results interpreted by me: 02/03/17 02/03/17 02/03/17 01:12 01:12 04:10 WBC 13.4 H 12.1 H Seg Neutrophils % 78.9 H Lymphocytes % 11.8 L Absolute Neutrophils 9.0 H 9.6 H Glucose 119 H Total Protein 8.4 H Albumin 5.2 H Discharge - Discharge Clinical Impression: Abdominal pain Qualifiers: Abdominal location: epigastric Qualified Code(s): R10.13 - Epigastric pain Hematemesis Qualifiers: Nausea presence: with nausea Qualified Code(s): K92.0 - Hematemesis Admitting Provider: Hospitalist Unit Admitted: Telemetry
--- NOTE | 2017-02-03 02:29 | RADIOLOGY REPORT (SQ) ---
EXAM DESCRIPTION: CT ABD/PELVIS NO ORAL OR IV COMPLETED DATE/TIME: 02/03/2017 2:15 am REASON FOR STUDY: severe epigastric pain post EGD COMPARISON: CR, abdomen TECHNIQUE: CT scan of the abdomen and pelvis performed without intravenous or oral contrast. Images reviewed with lung, soft tissue, and bone windows. Reconstructed coronal and sagittal MPR images revi ewed. All images stored on PACS. All CT scanners at this facility use dose modulation, iterative reconstruction, and/or weight based d osing when appropriate to reduce radiation dose to as low as reasonably achievable (ALARA). [facility]: Dose Right [facility]: CareDose [facility]: Dose Right [facility]: Teradose 4D [facility]: [employer] RADIATION DOSE: 1467 LIMITATIONS: None. FINDINGS: LOWER CHEST: See separate report of the CT of the chest. NON-CONTRASTED LIVER, SPLEEN, ADRENALS: Evaluation limited by lack of IV contrast. No identified sign ificant masses. PANCREAS: No masses. No peripancreatic inflammatory changes. GALLBLADDER: Surgically absent. RIGHT KIDNEY AND URETER: No suspicious masses. Assessment limited by lack of IV contrast. No signif icant calcifications. No hydronephrosis or hydroureter. LEFT KIDNEY AND URETER: No suspicious masses. Assessment limited by lack of IV contrast. No signifi cant calcifications. No hydronephrosis or hydroureter. AORTA AND RETROPERITONEUM: No aneurysm. No retroperitoneal masses or adenopathy. BOWEL AND PERITONEAL CAVITY: No obvious masses or inflammatory changes. No free fluid. APPENDIX: Normal. PELVIS, BLADDER, AND ABDOMINAL WALL:No abnormal masses. No free fluid. Bladder normal. BONES: No significant findings. OTHER: No other significant finding. IMPRESSION: NO SIGNIFICANT OR ACUTE PROCESS IN THE ABDOMEN OR PELVIS. TECHNICAL DOCUMENTATION: JOB ID: [id number] Quality ID # [id number]: Final reports with documentation of one or more dose reduction techniques (e.g., Au tomated exposure control, adjustment of the mA and/or kV according to patient size, use of iterative reconstruction technique) 2010 [employer]- All Rights Reserved
--- NOTE | 2017-02-03 02:32 | RADIOLOGY REPORT (SQ) ---
EXAM DESCRIPTION: CT CHEST WITHOUT COMPLETED DATE/TIME: 02/03/2017 2:15 am REASON FOR STUDY: post EGD pain COMPARISON: None. TECHNIQUE: CT scan performed of the chest without intravenous contrast. Images reviewed with lung, soft tissue and bone windows. Reconstructed coronal and sagittal MPR images reviewed. All images st ored on PACS. All CT scanners at this facility use dose modulation, iterative reconstruction, and/or weight based d osing when appropriate to reduce radiation dose to as low as reasonably achievable (ALARA). [facility]: Dose Right [facility]: CareDose [facility]: Dose Right [facility]: Teradose 4D [facility]: [employer] RADIATION DOSE: Up-to-date CT equipment and radiation dose reduction techniques were employed. CTDIv ol: 20.3 mGy. DLP: 1467 mGy-cm. mGy. LIMITATIONS: No technical limitations. FINDINGS: LUNGS AND PLEURA: No masses, infiltrates, pneumothorax. No pleural effusions, calcificati ons. HILAR AND MEDIASTINAL STRUCTURES: No identified masses or abnormal nodes. No obvious aneurysm. HEART AND VASCULAR STRUCTURES: No aneurysm. No pericardial effusion. UPPER ABDOMEN: See separate report of the CT of the abdomen. THYROID AND OTHER SOFT TISSUES: No masses. No adenopathy. BONES: No significant finding. HARDWARE: None in the chest. OTHER: No other significant findings. IMPRESSION: NO SIGNIFICANT FINDING ON NON-CONTRASTED CHEST CT. TECHNICAL DOCUMENTATION: JOB ID: [id number] Quality ID # [id number]: Final reports with documentation of one or more dose reduction techniques (e.g., Au tomated exposure control, adjustment of the mA and/or kV according to patient size, use of iterative reconstruction technique) 2010 [email or web address]- All Rights Reserved
[2017-02-03] MEDS ORDERED: PROMETHAZINE HCL INJ 25 MG/1 ML VIAL ONE (02:41)
[2017-02-03 04:28] LABS: ABSOLUTE LYMPHOCYTES (AUTO) 1.4 10^3/uL (0.5-4.7); ABSOLUTE MONOCYTES (AUTO) 1.1 10^3/uL (0.1-1.4); ABSOLUTE NEUT (AUTO) 9.6 10^3/uL (1.7-8.2); BASOPHILS % (AUTO) 0.2 % (0-2); EOSINOPHILS % (AUTO) 0.2 % (0-6); HEMATOCRIT 43.3 % (37.9-51.0); HGB HCT DIFFERENCE 1.7; LYMPHOCYTES % (AUTO) 11.8 % (13-45); MEAN CORPUSCULAR HEMOGLOBIN 30.6 pg (27.0-33.4); MEAN CORPUSCULAR HGB CONC 34.8 g/dL (32.0-36.0); MEAN CORPUSCULAR VOLUME 88 fl (80-97); MONOCYTES % (AUTO) 8.9 % (3-13); RED BLOOD COUNT 4.92 10^6/uL (4.35-5.55); RED CELL DISTRIBUTION WIDTH 13.4 % (11.5-14.0); SEGMENTED NEUTROPHILS % (AUTO) 78.9 % (42-78); WHITE BLOOD COUNT 12.1 10^3/uL (4.0-10.5)
[2017-02-03 04:43] LABS: URINE BARBITURATES SCREEN NEGATIVE; URINE METHADONE SCREEN NEGATIVE; URINE OPIATES LOW UNCONFIRMED POSITIVE; URINE PHENCYCLIDINE SCREEN NEGATIVE
[2017-02-03] MEDS ORDERED: GLUCAGON,HUMAN RECOMB 1 MG INJ SUBCUT PRN (04:59)
[2017-02-03] MEDS ORDERED: DEXTROSE 40% GEL 15 GM TUBE PO PRN ×2 (04:59)
[2017-02-03] MEDS ORDERED: DEXTROSE 50%-WATER 25 GM/50 ML DISP.SYRIN IV PRN ×2 (04:59)
[2017-02-03] MEDS ORDERED: KETOROLAC TROMETHAMINE INJ/PF 30 MG/1 ML SDV IV PRN (05:30)
--- NOTE | 2017-02-03 06:51 | PDOC H&P ---
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 He is in his usual state of health until approximately 6 hours prior to presentation with left upper quadrant abdominal pain and recurrent vomiting of bright red blood prompting to seek evaluation emergency room. Where he started on IV Protonix and referred to the hospitalist for admission. Patient has had exceptional pain requiring narcotics. Attempts to reach his beer cooler are in process for reevaluation. CT abdomen and pelvis are unremarkable. Initial CBC is unremarkable follow-up notable for a hemoglobin reduction of 1.3. Past Medical History Cardiac Medical History: Reports: Hypertension Denies: Coronary Artery Disease, Myocardial Infarction Pulmonary Medical History: Denies: Asthma, Bronchitis, Chronic Obstructive Pulmonary Disease (COPD), Pneumonia Neurological Medical History: Denies: Seizures Endocrine Medical History: Denies: Diabetes Mellitus Type 1 Musculoskeltal Medical History: Denies: Arthritis Psychiatric Medical History: Reports: Attention Deficit Hyperactivity Disorder, Depression Hematology: Denies: Anemia Past Surgical History Past Surgical History: Reports: Cardiac Catheterization, Cholecystectomy, Other - cardiac ablation for WPW Social History Information Source: Patient Smoking Status: Current Every Day Smoker Frequency of Alcohol Use: Social Hx Recreational Drug Use: No Drugs: None Hx Prescription Drug Abuse: No Family History Family History: Hypertension, Malignancy Parental Family History Reviewed: Yes Children Family History Reviewed: Yes Sibling(s) Family History Reviewed.: Yes Medication/Allergy Home Medications: Alprazolam [Xanax] 2 mg PO DAILY 01/13/17 Testosterone Cypionate 200 mg IM RTPRN PRN 01/29/17 Dextroamphetamine/Amphetamine [Adderall 20 mg Tablet] 1 tab PO DAILY 02/03/17 Allergies/Adverse Reactions: latex Allergy (Verified 02/01/17 11:04) Review of Systems Constitutional: ABSENT: chills, fever(s), headache(s), weight gain, weight loss Eyes: ABSENT: visual disturbances Ears: ABSENT: hearing changes Cardiovascular: ABSENT: chest pain, dyspnea on exertion, edema, orthropnea, palpitations Respiratory: ABSENT: cough, hemoptysis Gastrointestinal: ABSENT: abdominal pain, constipation, diarrhea, hematemesis, hematochezia, nausea, vomiting Genitourinary: ABSENT: dysuria, hematuria Musculoskeletal: ABSENT: joint swelling Integumentary: ABSENT: rash, wounds Neurological: ABSENT: abnormal gait, abnormal speech, confusion, dizziness, focal weakness, syncope Psychiatric: ABSENT: anxiety, depression, homidical ideation, suicidal ideation Endocrine: ABSENT: cold intolerance, heat intolerance, polydipsia, polyuria Hematologic/Lymphatic: ABSENT: easy bleeding, easy bruising Physical Exam Vital Signs: Temp Pulse Resp BP Pulse Ox 98.5 F 130 H 20 148/115 H 100 02/03/17 00:51 02/03/17 00:51 02/03/17 04:00 02/03/17 01:18 02/03/17 04:00 General appearance: PRESENT: cooperative, mild distress, well-developed, well- nourished, other - Global muscular hypertrophy. ABSENT: obese Head exam: PRESENT: atraumatic, normocephalic Eye exam: PRESENT: conjunctiva pink, EOMI, PERRLA. ABSENT: scleral icterus Ear exam: PRESENT: normal external ear exam Mouth exam: PRESENT: moist, tongue midline Neck exam: ABSENT: carotid bruit, JVD, lymphadenopathy, thyromegaly Respiratory exam: PRESENT: clear to auscultation sofia. ABSENT: rales, rhonchi, wheezes Cardiovascular exam: PRESENT: RRR. ABSENT: diastolic murmur, rubs, systolic murmur Pulses: PRESENT: normal dorsalis pedis pul GI/Abdominal exam: PRESENT: hypoactive bowel sounds, normal bowel sounds, soft, tenderness - Diffuse abdominal tenderness. ABSENT: distended, firm, guarding, mass, organolmegaly, rebound Rectal exam: PRESENT: deferred Extremities exam: PRESENT: full ROM. ABSENT: calf tenderness, clubbing, pedal edema Musculoskeletal exam: PRESENT: other - Global muscular hypertrophy Neurological exam: PRESENT: alert, awake, oriented to person, oriented to place , oriented to time, oriented to situation, CN II-XII grossly intact. ABSENT: motor sensory deficit Psychiatric exam: PRESENT: anxious Skin exam: PRESENT: dry, intact, warm. ABSENT: cyanosis, rash Results Impressions: Chest X-Ray 02/03/17 01:07 IMPRESSION: NO ACUTE RADIOGRAPHIC FINDING IN THE CHEST. Abdomen/Pelvis CT 02/03/17 01:16 IMPRESSION: NO SIGNIFICANT OR ACUTE PROCESS IN THE ABDOMEN OR PELVIS. Chest CT 02/03/17 01:53 IMPRESSION: NO SIGNIFICANT FINDING ON NON-CONTRASTED CHEST CT. Assessment & Plan - Diagnosis (1) Hematemesis Qualifiers: Nausea presence: with nausea Qualified Code(s): K92.0 - Hematemesis Is this a current diagnosis for this admission?: YesPlan: Upper GI source given history, IV Protonix symptomatic management gastroenterology consult serial CBC consider blood transfusion if significant hemoglobin drop. (2) Abdominal pain Qualifiers: Abdominal location: epigastric Qualified Code(s): R10.13 - Epigastric pain Is this a current diagnosis for this admission?: YesPlan: Likely secondary to peptic ulcer versus gastritis symptomatic management limit narcotics given history and risk of dependence. (3) Anxiety Is this a current diagnosis for this admission?: YesPlan: Continue outpatient regiment, reassurance (4) Elevated total protein Is this a current diagnosis for this admission?: YesPlan: Given body habitus, borderline polycythemia with elevated total protein and albumin I am concerned for androgen excess. We will evaluate luteinizing hormone for suppression. - Time Time Spent: 50 to 70 Minutes - Inpatient Certification Medical Necessity: Need Close Monitoring Due to Risk of Patient Decompensation
--- NOTE | 2017-02-03 07:39 | Progress Note ---
Provider Note Provider Note: Query into the [facility] Reveals recent fills for testosterone, Xanax 1mg filled for #30 on 01/07/17, Xanax 2mg filled for #60 on 01/21/17, Vicodin last filled on #14 on 11/23/16. See Printed copy for full info.
[2017-02-03] MEDS ORDERED: LIDOCAINE 2% VISCOUS SOLN 20 ML UDCUP PO ONE ×2 (08:00→17:30)
[2017-02-03] MEDS ORDERED: MAG HYDROX/AL HYDROX/SIMETH SUSP 30 ML UDCUP PO ONE (08:00)
[2017-02-03] MEDS ORDERED: METOCLOPRAMIDE HCL ORAL SOLN 10 MG/10 ML UDCUP PO ONE ×2 (08:00→17:30)
[2017-02-03] MEDS ORDERED: ONDANSETRON HCL INJ/PF 4 MG/2 ML SDV ONE (08:29)
[2017-02-03] MEDS ORDERED: SUCRALFATE SUSP 1 GM/10 ML UDCUP PO ONE (09:00)
[2017-02-03] MEDS ORDERED: CLONIDINE HCL 0.1 MG TABLET PO SCH (09:00)
--- NOTE | 2017-02-03 09:02 | PDOC PROGRESS REPORT ---
Subjective Progress Note for:: 02/03/17 Subjective:: patient presented to ED for possible GI bleeding had previous admission and had EGD recently as an inpatient that was negative, no evidence of heme, no ulcer noted. In fact patient had stated that he had some sort of GI surgery done, however did not visualize anastomotic site. following that came back to ED and had left AMA when told he could not receive Dilaudid per Hopitalist note came to see back as oupatient states that had LLQ pain had colonoscopy 2 days ago, negative now back to ED, ? bleed H/H is normal with hydration no melena noted BUN/ Creat ratio does not indicate bleeding imaging studies done, no perforation noted drug screen performed. Physical Exam Vital Signs: Temp Pulse Resp BP Pulse Ox 98.1 F 130 H 16 148/115 H 100 02/03/17 06:00 02/03/17 00:51 02/03/17 06:00 02/03/17 01:18 02/03/17 06:00 General appearance: PRESENT: no acute distress, well-developed, well-nourished Head exam: PRESENT: atraumatic, normocephalic Eye exam: PRESENT: EOMI, PERRLA Mouth exam: PRESENT: moist Throat exam: ABSENT: tonsillar exudate, tonsillogmegaly Neck exam: ABSENT: meningismus, tenderness, thyromegaly Respiratory exam: PRESENT: symmetrical, unlabored Cardiovascular exam: PRESENT: RRR, +S1, +S2 Musculoskeletal exam: PRESENT: full ROM Neurological exam: PRESENT: oriented to time, oriented to situation, CN II-XII grossly intact Skin exam: PRESENT: normal color. ABSENT: mottled, pallor, urticaria, vesicles Results Impressions: Chest X-Ray 02/03/17 01:07 IMPRESSION: NO ACUTE RADIOGRAPHIC FINDING IN THE CHEST. Abdomen/Pelvis CT 02/03/17 01:16 IMPRESSION: NO SIGNIFICANT OR ACUTE PROCESS IN THE ABDOMEN OR PELVIS. Chest CT 02/03/17 01:53 IMPRESSION: NO SIGNIFICANT FINDING ON NON-CONTRASTED CHEST CT. Assessment & Plan - Diagnosis (1) Hematemesis Qualifiers: Nausea presence: with nausea Qualified Code(s): K92.0 - Hematemesis Is this a current diagnosis for this admission?: YesPlan: likely isolated event. there has been no significant drop of his Hgb following hydration no other objective evidence of significant GI bleeding ( normal BUN/ Creat ratio ) spoke with Dr Nicholas if there are other symptoms, then bleeding scan would be appropriate since recent EGD ( < 2 weeks ago) and colonoscopy ( 2 days ago) was negative. alternatively consider 2nd opinion and possibly transfer to tertiary institution for continued work up, i.e. small bowel imaging - Time Time Spent with patient: 15-24 minutes
[2017-02-03] MEDS ORDERED: PROMETHAZINE HCL 25 MG SUPP.RECT PR PRN (09:52)
[2017-02-03] MEDS ORDERED: ONDANSETRON HCL INJ/PF 4 MG/2 ML SDV IV PRN (09:52)
[2017-02-03] MEDS ORDERED: ALPRAZOLAM 0.5 MG TABLET PO PRN (09:53)
[2017-02-03 10:21] LABS: ABSOLUTE EOSINOPHILS # (AUTO) 0.1 10^3/uL (0.0-0.6); ABSOLUTE LYMPHOCYTES (AUTO) 2.9 10^3/uL (0.5-4.7); ABSOLUTE NEUT (AUTO) 4.9 10^3/uL (1.7-8.2); BASOPHILS % (AUTO) 0.4 % (0-2); EOSINOPHILS % (AUTO) 1.6 % (0-6); HEMATOCRIT 42.1 % (37.9-51.0); HEMOGLOBIN 14.9 g/dL (13.5-17.0); HGB HCT DIFFERENCE 2.6; LYMPHOCYTES % (AUTO) 31.9 % (13-45); MEAN CORPUSCULAR HEMOGLOBIN 30.8 pg (27.0-33.4); MEAN CORPUSCULAR HGB CONC 35.3 g/dL (32.0-36.0); MEAN CORPUSCULAR VOLUME 87 fl (80-97); MONOCYTES % (AUTO) 11.5 % (3-13); RED BLOOD COUNT 4.83 10^6/uL (4.35-5.55); RED CELL DISTRIBUTION WIDTH 13.1 % (11.5-14.0); SEGMENTED NEUTROPHILS % (AUTO) 54.6 % (42-78); WHITE BLOOD COUNT 8.9 10^3/uL (4.0-10.5)
[2017-02-03] MEDS ORDERED: CITALOPRAM HYDROBROMIDE 20 MG TABLET PO ONE (10:30)
[2017-02-03] MEDS ORDERED: ALPRAZOLAM 0.5 MG TABLET PO ONE (10:30)
[2017-02-03] MEDS: NORMAL SALINE 1000 ML 1,000 ML IV PRN ×2 (10:34→13:20)
[2017-02-03] MEDS: PANTOPRAZOLE SODIUM 40 MG VIAL IV SCH ×2 (10:37→21:06)
[2017-02-03] MEDS: SUCRALFATE SUSP 1 GM/10 ML UDCUP PO SCH ×3 (13:19→23:06)
--- NOTE | 2017-02-03 13:32 | EKG REPORT ---
SEVERITY:- NORMAL ECG - SINUS RHYTHM : Confirmed by: Aguila Puente MD 03-Feb-2017 13:31:51
[2017-02-03 14:50] LABS: HEMATOCRIT 40.5 % (37.9-51.0); HEMOGLOBIN 14.5 g/dL (13.5-17.0); MEAN CORPUSCULAR HEMOGLOBIN 30.6 pg (27.0-33.4); MEAN CORPUSCULAR HGB CONC 35.8 g/dL (32.0-36.0); MEAN CORPUSCULAR VOLUME 86 fl (80-97); RED BLOOD COUNT 4.74 10^6/uL (4.35-5.55); RED CELL DISTRIBUTION WIDTH 13.6 % (11.5-14.0); WHITE BLOOD COUNT 6.8 10^3/uL (4.0-10.5)
[2017-02-03 16:12] LABS: ABSOLUTE EOSINOPHILS # (AUTO) 0.2 10^3/uL (0.0-0.6); ABSOLUTE LYMPHOCYTES (AUTO) 2.3 10^3/uL (0.5-4.7); ABSOLUTE MONOCYTES (AUTO) 0.9 10^3/uL (0.1-1.4); ABSOLUTE NEUT (AUTO) 3.2 10^3/uL (1.7-8.2); BASOPHILS % (AUTO) 0.5 % (0-2); EOSINOPHILS % (AUTO) 2.7 % (0-6); HEMATOCRIT 41.6 % (37.9-51.0); HEMOGLOBIN 14.6 g/dL (13.5-17.0); HGB HCT DIFFERENCE 2.2; LYMPHOCYTES % (AUTO) 34.5 % (13-45); MEAN CORPUSCULAR HEMOGLOBIN 30.7 pg (27.0-33.4); MEAN CORPUSCULAR VOLUME 88 fl (80-97); RED BLOOD COUNT 4.74 10^6/uL (4.35-5.55); RED CELL DISTRIBUTION WIDTH 13.3 % (11.5-14.0); SEGMENTED NEUTROPHILS % (AUTO) 48.3 % (42-78); WHITE BLOOD COUNT 6.7 10^3/uL (4.0-10.5)
[2017-02-03] MEDS: MAG HYDROX/AL HYDROX/SIMETH SUSP 30 ML UDCUP PO PRN (16:32)
--- NOTE | 2017-02-03 17:04 | PDOC PROGRESS REPORT ---
Subjective Progress Note for:: 02/03/17 Subjective:: Patient complains of sharp midepigastric pain. Patient has had no melena or current hematemesis. He reports an episode of hematemesis at home. Patient reports that his drug screen is positive for amphetamines because he took an Adderall that he had from a long time ago. Patient last had Adderall filled in September of this year. Patient does describe to significant anxiety. Patient denies chest pain, shortness of breath, fevers, chills, diarrhea, constipation, headache, new onset weakness. Physical Exam Vital Signs: Temp Pulse Resp BP Pulse Ox 98.1 F 130 H 16 148/115 H 100 02/03/17 06:00 02/03/17 00:51 02/03/17 06:00 02/03/17 01:18 02/03/17 06:00 Exam: General: Awake alert and oriented x3, no acute respiratory distress HEENT: AT/NC, PERRL slight mydriasis, EOMI, oropharynx is moist, pink, no scleral icterus, no conjunctival injection Neck: No JVD, trachea midline Chest: Clear to auscultation bilaterally, no wheezes rhonchi or rales CV: Regular rate and rhythm, normal S1 and S2, no murmur, rub, or gallop Abdomen: Soft, nontender to palpation, nondistended, active bowel sounds; no rebound, rigidity, or guarding Extremities: No cyanosis, clubbing or edema Neuro: Cranial nerves II through XII are grossly intact without focal deficits; awake alert and oriented x3 Psych: Normal mood and affect Results Impressions: Chest X-Ray 02/03/17 01:07 IMPRESSION: NO ACUTE RADIOGRAPHIC FINDING IN THE CHEST. Abdomen/Pelvis CT 02/03/17 01:16 IMPRESSION: NO SIGNIFICANT OR ACUTE PROCESS IN THE ABDOMEN OR PELVIS. Chest CT 02/03/17 01:53 IMPRESSION: NO SIGNIFICANT FINDING ON NON-CONTRASTED CHEST CT. Assessment & Plan - Diagnosis (1) Gastritis and duodenitis Is this a current diagnosis for this admission?: YesPlan: Continue patient on PPI twice daily. Patient reports that he uses excessive amounts of caffeine, drinks soda pop, smokes cigarettes, and eat spicy foods. Patient has been advised on a GERD diet. Despite patient request for narcotics , these are declined. Patient has been given Carafate, PPI, and GI cocktail. (2) Abdominal pain Qualifiers: Abdominal location: epigastric Qualified Code(s): R10.13 - Epigastric pain Is this a current diagnosis for this admission?: YesPlan: Patient has had a negative upper and lower endoscopy within the past several weeks. He has had a negative chest and abdomen CTA and CT. Patient has a surgically absent gallbladder. Patient was found on upper endoscopy to have a healing Alania-Muro tear. Patient was also found to have mild gastritis and mild duodenitis which is likely the cause of his current pain. (3) Dehydration Is this a current diagnosis for this admission?: YesPlan: Patient physical exam and lab work suggest that he is dehydrated. Will give 2- 3 L of IV saline and run his fluids at 200mL an hour. Check orthostatics (4) Benzodiazepine dependence Is this a current diagnosis for this admission?: YesPlan: Continue patient's Xanax 2 mg oral every 8 as needed (5) Anxiety Is this a current diagnosis for this admission?: YesPlan: Continue patient on his home Celexa and Xanax. Will consider the use of Vistaril. (6) History of Yrwdu-Ocjyatuzb-Lgezf (WPW) syndrome Is this a current diagnosis for this admission?: YesPlan: Repeat EKG reveals normal sinus rhythm - Time Time Spent with patient: 35 or more minutes Medications reviewed and adjusted accordingly: Yes Anticipated discharge: Home Within: within 24 hours - Plan Summary Plan Summary: Total time spent with patient including patient education, physical examination , discussion with consultants, and formulation of plan was 65 minutes.
[2017-02-03] MEDS ORDERED: NORMAL SALINE 1000 ML 2,000 ML IV ONE (17:30)
[2017-02-03 22:04] LABS: ABSOLUTE BASOPHILS # (AUTO) 0.1 10^3/uL (0.0-0.2); ABSOLUTE EOSINOPHILS # (AUTO) 0.2 10^3/uL (0.0-0.6); ABSOLUTE LYMPHOCYTES (AUTO) 2.7 10^3/uL (0.5-4.7); ABSOLUTE MONOCYTES (AUTO) 0.9 10^3/uL (0.1-1.4); ABSOLUTE NEUT (AUTO) 3.2 10^3/uL (1.7-8.2); BASOPHILS % (AUTO) 0.7 % (0-2); HEMATOCRIT 39.1 % (37.9-51.0); HEMOGLOBIN 13.8 g/dL (13.5-17.0); HGB HCT DIFFERENCE 2.3; LYMPHOCYTES % (AUTO) 38.3 % (13-45); MEAN CORPUSCULAR HEMOGLOBIN 31.2 pg (27.0-33.4); MEAN CORPUSCULAR HGB CONC 35.3 g/dL (32.0-36.0); MEAN CORPUSCULAR VOLUME 88 fl (80-97); MONOCYTES % (AUTO) 12.6 % (3-13); RED BLOOD COUNT 4.43 10^6/uL (4.35-5.55); RED CELL DISTRIBUTION WIDTH 13.3 % (11.5-14.0); SEGMENTED NEUTROPHILS % (AUTO) 45.4 % (42-78); WHITE BLOOD COUNT 7.2 10^3/uL (4.0-10.5)
[2017-02-04] MEDS: NORMAL SALINE 1000 ML 1,000 ML IV PRN ×2 (02:01→08:12)
[2017-02-04] MEDS ORDERED: KETOROLAC TROMETHAMINE INJ/PF 30 MG/1 ML SDV INJ ONE (02:15)
[2017-02-04 04:50] LABS: ABSOLUTE EOSINOPHILS # (AUTO) 0.2 10^3/uL (0.0-0.6); ABSOLUTE LYMPHOCYTES (AUTO) 2.9 10^3/uL (0.5-4.7); ABSOLUTE MONOCYTES (AUTO) 0.8 10^3/uL (0.1-1.4); ABSOLUTE NEUT (AUTO) 2.8 10^3/uL (1.7-8.2); BASOPHILS % (AUTO) 0.5 % (0-2); EOSINOPHILS % (AUTO) 2.8 % (0-6); HEMATOCRIT 37.2 % (37.9-51.0); HEMOGLOBIN 13.5 g/dL (13.5-17.0); HGB HCT DIFFERENCE 3.3; LYMPHOCYTES % (AUTO) 43.7 % (13-45); MEAN CORPUSCULAR HEMOGLOBIN 31.1 pg (27.0-33.4); MEAN CORPUSCULAR HGB CONC 36.2 g/dL (32.0-36.0); MEAN CORPUSCULAR VOLUME 86 fl (80-97); MONOCYTES % (AUTO) 11.5 % (3-13); RED BLOOD COUNT 4.33 10^6/uL (4.35-5.55); RED CELL DISTRIBUTION WIDTH 13.5 % (11.5-14.0); SEGMENTED NEUTROPHILS % (AUTO) 41.5 % (42-78); WHITE BLOOD COUNT 6.7 10^3/uL (4.0-10.5)
[2017-02-04] MEDS: SUCRALFATE SUSP 1 GM/10 ML UDCUP PO SCH (05:01)
[2017-02-04] MEDS: MAG HYDROX/AL HYDROX/SIMETH SUSP 30 ML UDCUP PO PRN (08:44)
[2017-02-04 09:11] VITALS: BP 126/75
[2017-02-04] MEDS: PANTOPRAZOLE SODIUM 40 MG VIAL IV SCH (09:30)
[2017-02-04 09:42] LABS: ABSOLUTE BASOPHILS # (AUTO) 0.1 10^3/uL (0.0-0.2); ABSOLUTE EOSINOPHILS # (AUTO) 0.2 10^3/uL (0.0-0.6); ABSOLUTE LYMPHOCYTES (AUTO) 2.4 10^3/uL (0.5-4.7); ABSOLUTE MONOCYTES (AUTO) 0.7 10^3/uL (0.1-1.4); ABSOLUTE NEUT (AUTO) 3.3 10^3/uL (1.7-8.2); BASOPHILS % (AUTO) 0.9 % (0-2); EOSINOPHILS % (AUTO) 2.6 % (0-6); HEMATOCRIT 39.6 % (37.9-51.0); HEMOGLOBIN 13.8 g/dL (13.5-17.0); HGB HCT DIFFERENCE 1.8; LYMPHOCYTES % (AUTO) 36.2 % (13-45); MEAN CORPUSCULAR HEMOGLOBIN 30.3 pg (27.0-33.4); MEAN CORPUSCULAR HGB CONC 34.7 g/dL (32.0-36.0); MEAN CORPUSCULAR VOLUME 87 fl (80-97); MONOCYTES % (AUTO) 11.1 % (3-13); RED BLOOD COUNT 4.55 10^6/uL (4.35-5.55); RED CELL DISTRIBUTION WIDTH 13.5 % (11.5-14.0); SEGMENTED NEUTROPHILS % (AUTO) 49.2 % (42-78); WHITE BLOOD COUNT 6.7 10^3/uL (4.0-10.5)
--- NOTE | 2017-02-04 15:15 | PDOC DISCHARGE SUMMARY ---
General - Admit/Disc Date/PCP Admission Date/Primary Care Provider: 02/03/17 05:00 MARITZA WEATHERS PA-C Discharge Date: 02/04/17 - Discharge Diagnosis (1) Gastritis and duodenitis Is this a current diagnosis for this admission?: Yes (2) Abdominal pain Is this a current diagnosis for this admission?: Yes (3) Dehydration Is this a current diagnosis for this admission?: Yes (4) Benzodiazepine dependence Is this a current diagnosis for this admission?: Yes (5) Anxiety Is this a current diagnosis for this admission?: Yes (6) History of Lvndh-Onzuxjmsx-Xdzjk (WPW) syndrome Is this a current diagnosis for this admission?: Yes - Additional Information Resuscitation Status: Full Code Discharge Diet: Regular, Other (Comments) Discharge Activity: Activity As Tolerated Home Medications: Alprazolam [Xanax] 2 mg PO DAILY 01/13/17 Dexlansoprazole [Dexilant 60 mg Capsule] 60 mg PO BID #60 cap. 02/04/17 Promethazine HCl [Phenergan 25 mg Supp.rect] 25 mg [place] Q8HP PRN #12 supp.rect 09/18 Sucralfate [Carafate Susp 1 Gm/10 Ml Udcup] 1 gm PO ACHS #120 udc 02/04/17 History of Present Illness History of Present Illness: Please see H&P for full HPI Hospital Course Hospital Course: Patient was admitted for possible GI bleed. Patient exhibited no evidence here of GI bleeding. He was mildly dehydrated and found to be orthostatic. He was given several liters of IV fluid. Patient did have a drug screen that was positive for amphetamines. I did discuss this with him and he did have a previous history of prescription for Adderall. However, upon review of patient' s fill prescription history from the [place] controlled substance database, he has not had a prescription for Adderall since September of this year. Patient has also recently started taking testosterone. And LH was performed and this was found to be on the low normal side. At this time I discussed with patient stopping the testosterone as this is likely exacerbating his GERD/ gastritis/duodenitis. I did inform patient and he expressed understanding that because of this he should have a further endocrinologic workup and have referred him to Dr. Talbert and [place]. I also discussed with him compliance with diet and PPI regimen for his gastritis/duodenitis. Patient continues to remain noncompliant with diet and behavioral changes. Patient was able to tolerate p.o. and was discharged in stable condition today.Patient's reported pain is out of proportion to his physical examination. Patient also underwent a CT of the chest abdomen and pelvis all of which were negative. Patient has undergone within the last 2 weeks upper endoscopy as well as lower endoscopy. Patient's upper endoscopy revealed a healing Alaina-Muro tear, gastritis, and duodenitis. Patient's lower endoscopy was normal. Patient does also report significant anxiety and is Xanax dependent. Patient is advised to continue to follow-up with us and discuss possibly changing his medication. I did discuss with him that in light of his need for ongoing benzodiazepines that he should avoid amphetamines. Using amphetamines also is likely making his gastritis/duodenitis worse. Physical Exam Vital Signs: Temp Pulse Resp BP Pulse Ox 97.4 F 77 16 126/75 H 96 02/04/17 09:06 02/04/17 09:06 02/04/17 09:06 02/04/17 09:06 02/04/17 09:06 Intake & Output 02/03/17 02/04/17 02/05/17 06:59 06:59 06:59 Intake Total 4998 Output Total 1150 Balance 3848 Weight 126.1 kg Exam: General: Awake alert and oriented x3, no acute respiratory distress HEENT: AT/NC, PERRL, EOMI, oropharynx is moist, pink, no scleral icterus, no conjunctival injection Neck: No JVD, trachea midline Chest: Clear to auscultation bilaterally, no wheezes rhonchi or rales CV: Regular rate and rhythm, normal S1 and S2, no murmur, rub, or gallop Abdomen: Soft, nontender to palpation, nondistended, active bowel sounds; no rebound, rigidity, or guarding Extremities: No cyanosis, clubbing or edema Neuro: Cranial nerves II through XII are grossly intact without focal deficits; awake alert and oriented x3 Psych: Normal mood and affect Results Laboratory Results: 02/04/17 09:32 02/03/17 02/03/17 02/04/17 16:00 21:50 04:16 WBC 6.7 7.2 6.7 RBC 4.74 4.43 4.33 L Hgb 14.6 13.8 13.5 Hct 41.6 39.1 37.2 L MCV 88 88 86 MCH 30.7 31.2 31.1 MCHC 35.0 35.3 36.2 H RDW 13.3 13.3 13.5 Plt Count 227 210 210 Seg Neutrophils % 48.3 45.4 41.5 L Lymphocytes % 34.5 38.3 43.7 Monocytes % 14.0 H 12.6 11.5 Eosinophils % 2.7 3.0 2.8 Basophils % 0.5 0.7 0.5 Absolute Neutrophils 3.2 3.2 2.8 Absolute Lymphocytes 2.3 2.7 2.9 Absolute Monocytes 0.9 0.9 0.8 Absolute Eosinophils 0.2 0.2 0.2 Absolute Basophils 0.0 0.1 0.0 02/04/17 09:32 WBC 6.7 RBC 4.55 Hgb 13.8 Hct 39.6 MCV 87 MCH 30.3 MCHC 34.7 RDW 13.5 Plt Count 218 Seg Neutrophils % 49.2 Lymphocytes % 36.2 Monocytes % 11.1 Eosinophils % 2.6 Basophils % 0.9 Absolute Neutrophils 3.3 Absolute Lymphocytes 2.4 Absolute Monocytes 0.7 Absolute Eosinophils 0.2 Absolute Basophils 0.1 Impressions: Chest X-Ray 02/03/17 01:07 IMPRESSION: NO ACUTE RADIOGRAPHIC FINDING IN THE CHEST. Abdomen/Pelvis CT 02/03/17 01:16 IMPRESSION: NO SIGNIFICANT OR ACUTE PROCESS IN THE ABDOMEN OR PELVIS. Chest CT 02/03/17 01:53 IMPRESSION: NO SIGNIFICANT FINDING ON NON-CONTRASTED CHEST CT. Qualifiers PATEINT BEING DISCHARGED WITH ANY OF THE FOLLOWING DIAGNOSIS?: No Plan Time Spent: Less than 30 Minutes
== END 2017-02-04 09:48 | disposition home or self-care (01) ==
LOC: ER 00:43 → OBSVTOIN 04:17 → EH 04:17 → INTOOBSV 04:17 → UNDOADMOB 04:17 → INTOOBSV 05:00 → OBSVTOIN 05:00 → EH 05:00 → 4S 12:21
PROVIDERS: ADMIT Internal Medicine; ATTEND Internal Medicine
DX: K29.70 Gastritis, unspecified, without bleeding (principal); K29.80 Duodenitis without bleeding; R10.13 Epigastric pain; E86.0 Dehydration; F13.20 Sedative, hypnotic or anxiolytic dependence, uncomplicated; F41.9 Anxiety disorder, unspecified; K22.6 Gastro-esophageal laceration-hemorrhage syndrome; Z86.79 Personal history of other diseases of the circulatory system; F15.20 Other stimulant dependence, uncomplicated; F90.9 Attention-deficit hyperactivity disorder, unspecified type; R79.89 Other specified abnormal findings of blood chemistry; D75.1 Secondary polycythemia; R00.0 Tachycardia, unspecified; Z91.11 Patient's noncompliance with dietary regimen; Z79.899 Other long term (current) drug therapy; F17.200 Nicotine dependence, unspecified, uncomplicated; Z90.49 Acquired absence of other specified parts of digestive tract; Z98.890 Other specified postprocedural states; Z80.9 Family history of malignant neoplasm, unspecified
CPT/HCPCS: 96376; 99285; 96372; 96361; 96375; 96365; 96366; 86900; 86901; 36415 ×2; 86850; 83002; 83690; 85025 ×2; 85027; 80053; 80307; 71010; 71250; 74176; 93005; 93010; G0378 ×3; J3010; J3490; J1885 ×2; J2270; S0164; J2550; J2405; J7030 ×2